=== PATIENT | male | born 1940 | race Caucasian/White ===

== ENCOUNTER 2017-10-08 19:17 | Emergency (ER) | payer MEDICARE ==
[~2017-10-08] VITALS: Ht 175.3 cm; Wt 90.9 kg
[~2017-10-08 19:17] MED LIST: ASPI325T33 PO; LOSA50TA PO; MULT1TAB64 PO; TERA5CAP3 PO
[2017-10-08 19:28] VITALS: BP 167/77; PULSE 62; RESP 14; TEMP 98.3; O2SAT 98
[2017-10-09 00:19] VITALS: BP 172/75; PULSE 57; RESP 16; O2SAT 98
[2017-10-09] MEDS ORDERED: OMEP40CA2 PO (00:19)
[2017-10-09 01:00] VITALS: BP 134/65; PULSE 57; RESP 16; O2SAT 98
[2017-10-09] MEDS ORDERED: oxyCODONE/ACETAMINOPHEN 5 MG/325 MG TAB PO ONE (01:15)
[2017-10-09] MEDS ORDERED: DEXAMETHASONE SOD PHOS 20 MG/5 ML VIAL IM ONE (01:15)
[2017-10-09] MEDS ORDERED: KETOROLAC TROMETHAMINE 60 MG/2 ML (IM) VIAL IM ONE (01:15)
[2017-10-09 01:45] LABS: BILIRUBIN, URINE NEG (NEG); BLOOD, URINE NEG (NEG); GLUCOSE,URINE NEG (NEG); KETONE, URINE NEG (NEG); MUCUS URINE FEW /lpf (OCC); NITRITE,URINE NEG (NEG); PH, URINE 6.5 (5.0-8.5); URINE COLOR YELLOW (YELLW/STRAW); URINE LEUKOCYTE ESTERASE NEG (NEG)
[2017-10-09] MEDS ORDERED: MEDR4PAK PO (02:27)
--- NOTE | 2017-10-09 02:27 | PD ---
HPI Chief Complaint: Back/ Neck Pain or Injury Time Seen by Provider: 01:14 Travel History International Travel<30 days: No Contact w/Intl Traveler<30days: No Traveled to known affect area: No History of Present Illness HPI 76-year-old male presents to the emergency department complaint of back pain with radiation to the left lower extremity. Patient with known chronic back pain currently undergoing physical therapy. Patient has an MRI. Patient has been considered a nonsurgical patient. Patient reports after physical therapy evaluation yesterday around 10 AM started having increased low back pain with radiation to the left lower extremity. No numbness tingling or weakness of the left lower extremity just complaining of increasing pain and bladder bowel dysfunction no saddle anesthesia. Patient took a one-time dose of hydrocodone without symptomatic relief and decided to come to the emergency room. Patient rates pain as 8/10 in intensity. Movement worsens symptoms. No recent fever chills vomiting chest pain shortness of breath or abdominal pain. Patient did have brief episode of nausea secondary to intensity of pain that has now resolved. PFSH Past Medical History Narrative Medical Dyslipidemia chronic back pain hiatal hernia appendectomy; nursing notes reviewed Blood Disorders: No Heart Rhythm Problems: No Cancer: Yes (SKIN CA) Cardiac Catheterization: No Cardiovascular Problems: Yes High Cholesterol: Yes Congestive Heart Failure: No Diabetes: No Diminished Hearing: No Deep Vein Thrombosis: Yes Endocrine: No Gastrointestinal Disorders: Yes Genitourinary: No Hiatal Hernia: Yes Hypertension: Yes Immune Disorder: No Musculoskeletal: Yes Neurologic: Yes Psychiatric: No Reproductive: No Respiratory: No Tetanus Vaccination: < 5 Years Influenza Vaccination: Yes Past Surgical History Abdominal Surgery: Yes (UMBILICAL HERNIA, COLON REP./ APPY) Appendectomy: Yes Coronary Artery Bypass Graft: No Neurologic Surgery: Yes (NERVE BLOCK FOR RLE) Pacemaker: No Tonsillectomy: Yes Other Surgery: Yes Social History Alcohol Use: Yes (OCCASIONALLY) Tobacco Use: No Substance Use: No Allergies-Medications (Allergen,Severity, Reaction): Coded Allergies: No Known Allergies (Verified Adverse Reaction, Unknown, 08/13/17) Reported Meds & Prescriptions Reported Meds & Active Scripts Active Medrol Dosepak (Methylprednisolone) 4 Mg Dspk 4 Mg PO DIRECTED Per Pharmacist direction Reported Omeprazole 40 Mg Cap 40 Mg PO DAILY Centrum Silver Men Tablet (Multivit-Min/FA/Lycopen/Lutein) 300 Mcg-600 Mcg-300 Mcg Tablet 1 Tab PO DAILY Aspirin EC (Aspirin) 325 Mg Tabdr 325 Mg PO DAILY Terazosin (Terazosin HCl) 5 Mg Cap 5 Mg PO HS Losartan (Losartan Potassium) 50 Mg Tab 50 Mg PO DAILY Review of Systems Except as stated in HPI: all other systems reviewed are Neg Physical Exam Narrative GENERAL: Well-developed well-nourished male in no acute distress no respiratory distress SKIN: Warm and dry. HEAD: Normocephalic. EYES: No scleral icterus. No injection or drainage. NECK: Supple, trachea midline. No JVD or lymphadenopathy. CARDIOVASCULAR: Regular rate and rhythm without murmurs, gallops, or rubs. RESPIRATORY: Breath sounds equal bilaterally. No accessory muscle use. GASTROINTESTINAL: Abdomen soft, non-tender, nondistended. MUSCULOSKELETAL: No cyanosis, or edema. BACK: Nontender without obvious deformity except for mild tenderness to direct palpation along the lower lumbar spine over each SI joint left greater than right DTRs 2+ and equal bilateral upper extremities without clonus. Sensory exam intact as tested. Pain is exacerbated by lifting of the left lower extremity. No CVA tenderness. Dorsalis pedis pulse 2+ to palpation. Data Data Last Documented VS Vital Signs Date Time Temp Pulse Resp B/P (MAP) Pulse Ox O2 Delivery O2 Flow Rate FiO2 10/09/17 02:30 58 16 159/75 (103) 100 10/09/17 01:00 Room Air 10/08/17 19:28 98.3 Orders Orders Dexamethasone Inj (Decadron Inj) (10/09/17 01:15) Ketorolac Inj (Toradol Inj) (10/09/17 01:15) Oxycodone-Acetamin 5-325 Mg (Percocet (10/09/17 01:15) Urinalysis - C+S If Indicated (10/09/17 01:14) Ed Discharge Order (10/09/17 02:25) Labs Laboratory Tests Test 10/09/17 01:20 Urine Color YELLOW Urine Turbidity CLEAR Urine pH 6.5 Urine Specific [place] 1.010 Urine Protein NEG mg/dL Urine Glucose (UA) NEG mg/dL Urine Ketones NEG mg/dL Urine Occult Blood NEG Urine Nitrite NEG Urine Bilirubin NEG Urine Urobilinogen LESS THAN 2.0 MG/DL Urine Leukocyte Esterase NEG Urine RBC 1 /hpf Urine WBC 1 /hpf Urine Mucus FEW /lpf Microscopic Urinalysis Comment CULT NOT INDICATED MDM Medical Decision Making Medical Screen Exam Complete: Yes Emergency Medical Condition: Yes Medical Record Reviewed: Yes Differential Diagnosis Sciatica sacroiliitis lumbar disc disease lumbar radiculopathy; no findings for cauda equina syndrome Narrative Course Patient presents with known lumbar disc disease with sciatica presentation administered Toradol 60 mg IM and Decadron 10 mg IM Patient resting comfortably Patient notes marked improvement of symptoms and is stable for outpatient management patient's had no recent injury or fall or change in history and no neurologic deficit on exam: Patient is stable for outpatient management and follow up with his outpatient management physician. Diagnosis Primary Impression: Sciatica Referrals: Primary Care Physician call for appointment Patient Instructions: General Instructions Additional Instructions: Follow-up with your primary care provider Return to the emergency department for any concerns or change in condition Take steroid as prescribed Take pain medication as prescribed as needed Med/Other Pt SpecificInfo: Prescription(s) given Scripts Methylprednisolone Dosepak (Medrol Dosepak) 4 Mg Dspk 4 MG PO DIRECTED, #1 DSPK 0 Refills Per Pharmacist direction Prov: Hyacinth Thibodeaux MD 10/09/17 Disposition: DISCHARGE HOME Condition: Stable Hyacinth Thibodeaux MD Oct 09, 2017 02:27
[2017-10-09 02:30] VITALS: BP 159/75
== END 2017-10-09 02:45 | disposition home or self-care (01) ==
LOC: NEPC 19:17
DX: M51.17 Intervertebral disc disorders with radiculopathy, lumbosacral region (principal); G89.29 Other chronic pain; E78.00 Pure hypercholesterolemia, unspecified; Z86.718 Personal history of other venous thrombosis and embolism; I10 Essential (primary) hypertension
CPT/HCPCS: 81001; 96372; 99283; J1100; J1885

== ENCOUNTER → 2017-11-17 | Outpatient (CLI) | payer MEDICARE ==
[~2017-11-17] MED LIST changes: +HYDR-3366 PO; +MEDR4PAK PO; +OMEP40CA2 PO
[2017-11-17 12:31] LABS: AUTOMATED NEUTROPHIL # 3.5 TH/MM3 (1.8-7.7); BASOPHIL % 0.5 % (0.0-2.0); EOSINOPHIL # 0.1 TH/MM3 (0-0.4); EOSINOPHIL % 1.8 % (0.0-4.0); HEMATOCRIT 38.3 % (39.0-51.0); LYMPH % 25.2 % (9.0-44.0); LYMPHOCYTE # 1.4 TH/MM3 (1.0-4.8); MEAN CELL VOLUME 92.2 FL (80.0-100.0); MEAN CORPUSCULAR HEMOGLOBIN 31.4 PG (27.0-34.0); MEAN PLATELET VOLUME 8.1 FL (7.0-11.0); MONOCYTE # 0.4 TH/MM3 (0-0.9); NEUT % 64.5 % (16.0-70.0); PLATELET COUNT 209 TH/MM3 (150-450); RED BLOOD COUNT 4.16 MIL/MM3 (4.50-5.90); RED CELL DISTRIBUTION WIDTH 13.1 % (11.6-17.2); WHITE BLOOD COUNT 5.5 TH/MM3 (4.0-11.0)
[2017-11-17 12:38] LABS: PROTHROMBIN TIME - PATIENT 10.2 SEC (9.8-11.6)
[2017-11-17 12:55] LABS: ALBUMIN 3.7 GM/DL (3.4-5.0); AST (GOT) 24 U/L (15-37); BICARBONATE 28.2 MEQ/L (21.0-32.0); BLOOD UREA NITROGEN 15 MG/DL (7-18); CALCIUM 9.1 MG/DL (8.5-10.1); CHLORIDE 105 MEQ/L (98-107); CREATININE 0.99 MG/DL (0.60-1.30); GLOMERULAR FILTRATION RATE 73 ML/MIN (>89); GLUCOSE,FASTING 107 MG/DL (74-99); SODIUM (NA) 141 MEQ/L (136-145)
[2017-11-17 12:56] LABS: ALT (GPT) 31 U/L (12-78)
[2017-11-17 12:58] LABS: ALKALINE PHOSPHATASE 61 U/L (45-117); TOTAL BILIRUBIN ADULT 0.4 MG/DL (0.2-1.0); TOTAL PROTEIN 7.1 GM/DL (6.4-8.2)
--- NOTE | 2017-11-18 16:09 | EKG ---
Date Performed: 11/17/2017 Time Performed: 12:30:51 PTAGE: 77 years EKG: SINUS BRADYCARDIA LEFT AXIS DEVIATION POSSIBLE LATERAL MYOCARDIAL INFARCTION ABNORMAL ECG PREVIOUS TRACING : 02/28/2012 21.44 No significant change from previous tracing noted. DOCTOR: Jason Fisher Interpretating Date/Time 11/18/2017 16:08:20
== END ==
LOC: CPRE 11:39
PROVIDERS: ATTEND Neurological Surgery
DX: Z01.812 Encounter for preprocedural laboratory examination (principal); Z01.810 Encounter for preprocedural cardiovascular examination; M48.062 Spinal stenosis, lumbar region with neurogenic claudication; M54.32 Sciatica, left side; M47.26 Other spondylosis with radiculopathy, lumbar region; R94.31 Abnormal electrocardiogram [ECG] [EKG]
CPT/HCPCS: 36415; 80053; 85025; 85610; 85730; 87640; 87641; 93005

== ENCOUNTER → 2017-11-19 | Outpatient (CLI) | payer MEDICARE ==
[2017-11-19 14:11] LABS: BILIRUBIN, URINE NEG (NEG); BLOOD, URINE NEG (NEG); GLUCOSE,URINE NEG (NEG); KETONE, URINE NEG (NEG); MUCUS URINE FEW /lpf (OCC); NITRITE,URINE NEG (NEG); PH, URINE 5.5 (5.0-8.5); URINE COLOR LIGHT-YELLOW (YELLW/STRAW); URINE LEUKOCYTE ESTERASE NEG (NEG)
== END ==
LOC: CLAB 13:10
PROVIDERS: ATTEND Neurological Surgery
DX: Z01.89 Encounter for other specified special examinations (principal)
CPT/HCPCS: 81001

== ENCOUNTER → 2017-11-20 | Day surgery (SDC) | payer MEDICARE ==
[~2017-11-20] VITALS: Ht 177.8 cm; Wt 98.0 kg
[~2017-11-20] MED LIST changes: +ACETAMINOPHEN 1000 MG/100 ML 100 ML IV ONE; +ACETAMINOPHEN/HYDROcodone 325 MG/10 MG TAB PO PRN; +BUPIVACAINE/EPINEPHRINE 0.5% PF 10 ML VIAL ONE; +BUPIVACAINE/EPINEPHRINE 0.5% PF 30 ML VIAL ONE; +CHLORHEXIDINE GLUCONATE 2 % 1 PACK (2 CLOTHS) TOPICAL PRN; +DEXAMETHASONE SOD PHOS 4 MG/ML VIAL IV ONE; +DO NOT ADM ANY ANTICOAGULANT DRUGS PRN; +GELFOAM SIZE 100 ONE; +GLYCOPYRROLATE 1 MG/5 ML SYRINGE IV PUSH ONE; +LABETALOL HCL 100 MG/20 ML VIAL IV ONE; +LACTATED RINGER'S 1000 ML INJ 1,000 ML IV ONE; +LACTATED RINGER'S 1000 ML IV PRN; +LIDOCAINE HCL 1% PF 5 ML SYRINGE OTHER ONE; -MEDR4PAK PO; +MEPERIDINE HCL 50 MG/ML VIAL ONE; +METOPROLOL TARTRATE 25 MG TAB PO PRN; +MIDAZOLAM HCL 2 MG/2 ML VIAL ONE; +NEOSTIGMINE 5 MG/5 ML SYRINGE IV PUSH ONE; +NS + KCL 20 MEQ INJ 1,000 ML IV SCH; +ONDANSETRON HCL 4 MG/2 ML VIAL IV ONE; +PHENYLEPHRINE HCL 10 MG/ML VIAL IV ONE; +POVIDONE IODINE 5% (ANTISEPSIS KIT) 4 APPLICATIONS EACH NARE PRN; +PROPOFOL 200 MG/20 ML AMP IV ONE; +ROCURONIUM INJ 50 MG/5 ML SYRINGE IV PUSH ONE; +SODIUM CHLORID 0.9% 500 ML IV PRN; +THROMBIN (TOPICAL) 5,000 UNIT VIAL ONE; +VANCOMYCIN 1 GM/200 ML INJ 200 ML IV SCH; +VANCOMYCIN HCL 1000 MG VIAL ONE; +ePHEDrine/NS 25 MG/5 ML SYRINGE IV ONE; +fentaNYL CITRATE 250 MCG/5 ML AMP ONE; +methylPREDNISolone ACETATE 40 MG/ML VIAL ONE
--- NOTE | 2017-11-20 13:35 | PD.OP ---
cc: Mildred Santana Jr., MD Operative Report Date of Surgery: Nov 20, 2017 Preoperative Diagnosis: Lumbar L4-5 spinal stenosis from facet and ligamentum flavum hypertrophy with associated herniated disc; intractable back pain with radiculopathy Postoperative Diagnosis: Same Procedure: Lumbar L4-5 decompressive laminectomy with microdiscectomy; microsurgical technique Anesthesia: Gen. endotracheal by Nila euceda Surgeon: Avery Pelaez M.D. Manager Community Outreach(s): Debra Kong Operation and Findings: Following administration of general endotracheal anesthesia, patient received vancomycin 1 g intravenously. Sequential compression devices were placed for DVT prophylaxis. He was then turned in prone position on Jarrod frame and the Javier table and all pressure points adequately padded. The lumbar region was then shaved and prepped with a Betadine and ChloraPrep. Sterile draping undertaken with Ioban. Midline incision overlying the L4-5 level was then made after infiltrating the skin with 0.5% Marcaine with epinephrine solution. The skin incision was made extending down through the fascia and then using the subperiosteal plane on the left side the muscular attachments to the spinous process and lamina were detached. Intraoperative fluoroscopy was used for level confirmation and further dissection undertaken using microtechnique with microscope magnification. The inferior portion of the L4 and superior portion of the L5 lamina were then drilled out and the underlying ligamentum flavum also removed. There was facet arthropathy noted and the medial portion of facet was also resected and the lateral recess decompressed. Epidural venous stasis which he with the bipolar cautery along with Gelfoam and thrombin and bone wax used at the laminotomy edges for hemostasis. The thecal sac was then gently retracted with a nerve root retractor and an extruded disc fragment was identified which was superiorly migrated. Fragments were removed with pituitary forceps and the nerve root impingement along with thecal sac compression decompressed. The area was then copiously irrigated with vancomycin solution. I injected 40 mg of Depo-Medrol in the epidural space. The retractors removed and the muscle fascia proximal using 2-0 Vicryl interrupted stitches. 3-0 Vicryl subcuticular stitches were also placed in an interrupted fashion and planned skin closure was with Mastisol and Steri- Strips. A sterile dressing was then applied and the patient then turned in the supine position and extubated and taken to recovery room in stable condition. There were no intraoperative complications and all sponge and needle count was correct at the end of the procedure. Estimated blood loss about 25 ml. Avery Pelaez MD Nov 20, 2017 13:35
--- NOTE | 2017-11-20 14:05 | RADRPT ---
EXAM DATE/TIME: 11/20/2017 11:38 [facility] COMPARISON: No previous studies available for comparison. INDICATIONS : L4-L5 lumbar laminectomy. Level localization. MEDICAL HISTORY : None. SURGICAL HISTORY : None. ENCOUNTER: Initial ACUITY: 1 day PAIN SCORE: Non-responsive. LOCATION: Lumbar spine. FINDINGS: Surgical instrument is noted posteriorly at the L4-5 level CONCLUSION: Surgical instrument noted posteriorly at the L4-5 level. Nasim Davila MD on November 20, 2017 at 14:02 Board Certified Radiologist. This report was verified electronically.
[2017-11-20 15:14] VITALS: BP 117/65; PULSE 53; RESP 20; TEMP 97.5; O2SAT 94
== END | disposition home or self-care (01) ==
LOC: HSDC 07:01
PROVIDERS: ATTEND Neurological Surgery
DX: M51.16 Intervertebral disc disorders with radiculopathy, lumbar region (principal); M48.062 Spinal stenosis, lumbar region with neurogenic claudication; I10 Essential (primary) hypertension
CPT/HCPCS: 00630; 63030; 72020; 76000; J0131; J1030; J1100; J2175; J2250; J2370; J2405; J2710; J3010; J3370; J7120

== ENCOUNTER → 2018-02-18 | Outpatient (CLI) | payer MEDICARE ==
[~2018-02-18] MED LIST changes: -ACETAMINOPHEN 1000 MG/100 ML 100 ML IV ONE; -ACETAMINOPHEN/HYDROcodone 325 MG/10 MG TAB PO PRN; -BUPIVACAINE/EPINEPHRINE 0.5% PF 10 ML VIAL ONE; -BUPIVACAINE/EPINEPHRINE 0.5% PF 30 ML VIAL ONE; -CHLORHEXIDINE GLUCONATE 2 % 1 PACK (2 CLOTHS) TOPICAL PRN; -DEXAMETHASONE SOD PHOS 4 MG/ML VIAL IV ONE; -DO NOT ADM ANY ANTICOAGULANT DRUGS PRN; -GELFOAM SIZE 100 ONE; -GLYCOPYRROLATE 1 MG/5 ML SYRINGE IV PUSH ONE; -LABETALOL HCL 100 MG/20 ML VIAL IV ONE; -LACTATED RINGER'S 1000 ML INJ 1,000 ML IV ONE; -LACTATED RINGER'S 1000 ML IV PRN; -LIDOCAINE HCL 1% PF 5 ML SYRINGE OTHER ONE; -MEPERIDINE HCL 50 MG/ML VIAL ONE; -METOPROLOL TARTRATE 25 MG TAB PO PRN; -MIDAZOLAM HCL 2 MG/2 ML VIAL ONE; -NEOSTIGMINE 5 MG/5 ML SYRINGE IV PUSH ONE; -NS + KCL 20 MEQ INJ 1,000 ML IV SCH; -ONDANSETRON HCL 4 MG/2 ML VIAL IV ONE; -PHENYLEPHRINE HCL 10 MG/ML VIAL IV ONE; -POVIDONE IODINE 5% (ANTISEPSIS KIT) 4 APPLICATIONS EACH NARE PRN; -PROPOFOL 200 MG/20 ML AMP IV ONE; -ROCURONIUM INJ 50 MG/5 ML SYRINGE IV PUSH ONE; -SODIUM CHLORID 0.9% 500 ML IV PRN; -THROMBIN (TOPICAL) 5,000 UNIT VIAL ONE; -VANCOMYCIN 1 GM/200 ML INJ 200 ML IV SCH; -VANCOMYCIN HCL 1000 MG VIAL ONE; +ZANT150T2 PO; -ePHEDrine/NS 25 MG/5 ML SYRINGE IV ONE; -fentaNYL CITRATE 250 MCG/5 ML AMP ONE; -methylPREDNISolone ACETATE 40 MG/ML VIAL ONE
--- NOTE | 2018-02-18 11:42 | RADRPT ---
EXAM DATE: 02/18/2018 10:53 AM EDT AGE/SEX: 77 years / Male INDICATIONS: Evaluate for pneumonia, pneumothorax, or any communicable disease. Pre op lower back tineo rgery. CLINICAL DATA: This is the patient's initial encounter. Patient reports that signs and symptoms have been present for 1 day and indicates a pain score of 0/10. MEDICAL/SURGICAL HISTORY: None. None. COMPARISON: No prior exams available for comparison. FINDINGS: PA and lateral views of the chest demonstrate the lungs to be symmetrically aerated without evidence of mass, infiltrate or effusion. The cardiomediastinal contours are unremarkable. Osseous structures are intact. CONCLUSION: No acute cardiopulmonary process. Electronically signed by: Joselito Oconnell MD 02/18/2018 11:41 AM EDT
[2018-02-18 11:43] LABS: AUTOMATED NEUTROPHIL # 3.6 TH/MM3 (1.8-7.7); BASOPHIL % 0.6 % (0.0-2.0); EOSINOPHIL # 0.2 TH/MM3 (0-0.4); EOSINOPHIL % 3.4 % (0.0-4.0); HEMATOCRIT 38.9 % (39.0-51.0); HEMOGLOBIN 13.3 GM/DL (13.0-17.0); LYMPH % 21.3 % (9.0-44.0); LYMPHOCYTE # 1.1 TH/MM3 (1.0-4.8); MEAN CORPUSCULAR HEMOGLOBIN 31.6 PG (27.0-34.0); MEAN CORPUSCULAR HGB CONC 34.3 % (32.0-36.0); MEAN PLATELET VOLUME 9.1 FL (7.0-11.0); MONO % 7.3 % (0.0-8.0); MONOCYTE # 0.4 TH/MM3 (0-0.9); NEUT % 67.4 % (16.0-70.0); PLATELET COUNT 200 TH/MM3 (150-450); RED BLOOD COUNT 4.23 MIL/MM3 (4.50-5.90); RED CELL DISTRIBUTION WIDTH 13.1 % (11.6-17.2); WHITE BLOOD COUNT 5.3 TH/MM3 (4.0-11.0)
[2018-02-18 12:08] LABS: BILIRUBIN, URINE NEG (NEG); BLOOD, URINE NEG (NEG); GLUCOSE,URINE NEG (NEG); HYALINE CAST, URINE 1 /lpf (RARE); KETONE, URINE TRACE mg/dL (NEG); NITRITE,URINE NEG (NEG); URINE COLOR YELLOW (YELLW/STRAW); URINE LEUKOCYTE ESTERASE NEG (NEG)
[2018-02-18 12:20] LABS: ALBUMIN 3.7 GM/DL (3.4-5.0); AST (GOT) 27 U/L (15-37); BICARBONATE 22.2 MEQ/L (21.0-32.0); BLOOD UREA NITROGEN 19 MG/DL (7-18); CHLORIDE 109 MEQ/L (98-107); CREATININE 1.02 MG/DL (0.60-1.30); GLOMERULAR FILTRATION RATE 71 ML/MIN (>89); GLUCOSE,FASTING 109 MG/DL (74-99); SODIUM (NA) 143 MEQ/L (136-145)
[2018-02-18 12:21] LABS: ALT (GPT) 28 U/L (12-78)
[2018-02-18 12:24] LABS: ALKALINE PHOSPHATASE 63 U/L (45-117); TOTAL BILIRUBIN ADULT 0.3 MG/DL (0.2-1.0); TOTAL PROTEIN 7.1 GM/DL (6.4-8.2)
== END ==
LOC: CPRE 09:39
PROVIDERS: ATTEND Neurological Surgery
DX: Z01.812 Encounter for preprocedural laboratory examination (principal); Z01.818 Encounter for other preprocedural examination; M51.16 Intervertebral disc disorders with radiculopathy, lumbar region; M99.73 Connective tissue and disc stenosis of intervertebral foramina of lumbar region; M21.372 Foot drop, left foot; Z79.01 Long term (current) use of anticoagulants
CPT/HCPCS: 36415; 71046; 80053; 81001; 85025; 85610; 85730; 87640; 87641

== ENCOUNTER 2018-02-24 06:00 | Inpatient (IN) | payer MEDICARE ==
--- NOTE | 2018-02-23 16:30 | MH ---
cc: Avery Pelaez MD,Mildred Jenkins,Yrn Velázquez MD DATE OF ADMISSION: 02/24/2018 DATE OF ADMISSION: 02/24/2018 ADMITTING DIAGNOSES: 1. Low back pain. 2. Scar tissue and disk stenosis of intervertebral foramen. HISTORY OF PRESENT ILLNESS: This is a 77-year-old male who presented to us for an evaluation of stiffness in his left ankle as well as cramps in his left calf. He gets edema in the left foot and ankle area. With walking, he sometimes staggers. He also has had deep pain in the left leg, likely a sciatic type of pain. He has tried gabapentin for his symptoms in the past, which did not help. He has previously undergone a L4/L5 decompressive laminectomy with microdiscectomy on 11/20/2017. He states that after surgery he had persistent left valentin area discomfort with numbness also in the left anterior valentin and lateral calf and foot. The patient is adamant that we consider surgical intervention, stating that his discomfort is not something he can live with. PAST MEDICAL HISTORY: Significant for skin cancer, deep vein thrombosis, hiatal hernia, hyperlipidemia, hypertension, spinal stenosis, status post a lumbar L4/L5 decompressive laminectomy with microdiscectomy on 11/20/2017, gastroesophageal reflux disease, seasonal allergies. CURRENT MEDICATIONS: 1. He takes aspirin 325 mg by mouth daily. This was placed on hold prior to surgical intervention. 2. Gabapentin 300 mg by mouth at bedtime. 3. [place] 5/325 three times a day as needed for pain. 4. Losartan 50 mg by mouth daily. 5. Multivitamin daily. 6. Omeprazole 40 mg by mouth daily. 7. Saw palmetto by mouth daily. 8. Terazosin 5 mg by mouth daily. 9. Zantac 150 mg at bedtime. ALLERGIES: CHIKA CAUSES A RASH. FAMILY HISTORY: Mother is , had malignant tumor of the lung. Father is . Brother has hypertension. SOCIAL HISTORY: The patient does not smoke and has not smoked in the past. PAST SURGICAL HISTORY: He has had abdominal surgery with colon repair, appendectomy, tonsillectomy and L4/L5 decompressive lumbar laminectomy with microdiscectomy on 11/20/2017. REVIEW OF SYSTEMS: CONSTITUTIONAL: He denies any fever, chills. EARS, NOSE AND THROAT. No pharyngitis, exudate or bloody drainage from his nose. CARDIOVASCULAR: Denies any chest pain or palpitations. RESPIRATORY: No cough or shortness of breath. GASTROINTESTINAL: No nausea, vomiting, abdominal pain. GENITOURINARY: No dysuria or hematuria. MUSCULOSKELETAL: Positive for low back pain and left leg pain with numbness. NEUROLOGIC: Denies any difficulty with speech or memory. INTEGUMENTARY: No rashes or pruritus. PSYCHIATRIC: No anxiety or depression symptoms. ENDOCRINE: No polyuria or polydipsia. HEMATOLOGIC: No bruising or bleeding tendencies. PHYSICAL EXAMINATION: HEENT: Head is normocephalic, atraumatic. NECK: Supple. No carotid bruits heard on auscultation. LUNGS: Clear to auscultation bilaterally. HEART: Regular rate and rhythm. Normal S1, S2. ABDOMEN: Soft, nontender, positive bowel sounds. SKIN: No cyanosis or erythema. MUSCULOSKELETAL: He has 3+/5 straight in the left EHL and 2/5 left dorsiflexion strength. Otherwise, he has 5/5 strength in the lower extremities. He ambulates without any assistive device. NEUROLOGIC: He is awake, alert, and oriented. Cranial nerves 2-12 are grossly intact. Speech is fluent. Comprehension is good. Sensation is decreased in the left lateral calf and top of the left foot, otherwise is intact in the lower extremities to light touch. IMAGING STUDIES REVIEWED: MRI of the lumbar spine from 01/02/2018 was reviewed, which reveals spinal stenosis along with a herniated disk has resolved, although he does have facet arthropathy and some disc degeneration at the L4-L5 level along with likely epidural scar tissue with enhancement in the lateral recess and foramen. An EMG/nerve conduction study also reveals a left L5 radiculopathy. IMPRESSION: A 77-year-old male who is now almost 3 months status post L4/L5 microdiscectomy for herniated disk with associated degenerative spinal stenosis. He had noticed some extensor hallucis longus dorsiflexion weakness prior to surgery and relates that this has not improved. He notices his foot flopping especially if he walks longer distances. He also complains of back pain and occasionally right leg pain. He also complains of numbness in the plantar aspect of the left foot along with swelling in the ankle and foot. Repeat ultrasound of the lower extremities is negative for any deep venous thrombosis although he does have a history of deep venous thrombosis in the past. Followup MRI of the lumbar spine from 01/02/2018 reveals his spinal stenosis along with herniated disk has resolved, although he does have facet arthropathy and some disc degeneration at the L4-L5 level along with likely epidural scar tissue with enhancement in the lateral recess and foramen. PLAN: He is adamant that we consider surgical intervention with a re-do L4/L5 foraminotomy with epidural lysis of scar tissue versus a transforaminal decompression with complete facetectomy, foraminotomy and associated interbody fusion. The procedure, as well as the risks and benefits were discussed of both procedures and he was informed that he may not improve after surgery, it could even be worse and no guarantees were given to him as to the results. He has a significant left foot drop prior to the surgery and, despite further surgical intervention, this may not improve and this was discussed with the patient and his . Dr. Pelaez has also discussed with the patient and the use of an AFO brace to decrease his fall risk. The patient wanted to proceed with interbody fusion and pedicle screw fixation. Again the procedure as well as the risks, benefits, alternatives, and recovery time were explained in great detail with the patient. We have discussed the risks involved with surgery to include but not limited to bleeding, infection, muscle weakness, voice hoarseness, difficulty swallowing, heart attack, stroke, blood clots, nonfusion, scar tissue formation, among others. We have discussed the restrictions after surgery to help with the healing process. The patient states that he understands the procedure as well as the risks involved and he is requesting to proceed and he was therefore scheduled accordingly. MD Monico Enriquez, JAYANT LEMONS/DINESH , 03:44 PM , 04:29 PM
[~2018-02-24] VITALS: Ht 177.8 cm; Wt 101.4 kg
[2018-02-24] MEDS ORDERED: CHLORHEXIDINE GLUCONATE 2 % 1 PACK (2 CLOTHS) TOPICAL PRN ×2 (06:15→06:30)
[2018-02-24] MEDS ORDERED: VANCOMYCIN 1 GM/200 ML PREMIX ON-CALL IV SCH (06:15)
[2018-02-24] MEDS ORDERED: LACTATED RINGER'S 1000 ML IV PRN (06:15)
[2018-02-24] MEDS ORDERED: METOPROLOL TARTRATE 25 MG TAB PO PRN (06:15)
[2018-02-24] MEDS ORDERED: POVIDONE IODINE 5% (ANTISEPSIS KIT) 4 APPLICATIONS EACH NARE PRN (06:15)
[2018-02-24] MEDS ORDERED: SODIUM CHLORID 0.9% 500 ML IV PRN (06:15)
[2018-02-24] MEDS ORDERED: VANCOMYCIN HCL 1000 MG VIAL ONE (07:22)
[2018-02-24] MEDS ORDERED: VANCOMYCIN 500 MG VIAL ONE ×2 (07:22→07:53)
[2018-02-24] MEDS ORDERED: THROMBIN (TOPICAL) 5,000 UNIT VIAL ONE ×2 (07:22→12:10)
[2018-02-24] MEDS ORDERED: BUPIVACAINE/EPINEPHRINE 0.5% PF 30 ML VIAL ONE (07:22)
[2018-02-24] MEDS ORDERED: GELFOAM SIZE 100 ONE (07:50)
[2018-02-24] MEDS ORDERED: ACETAMINOPHEN 1000 MG/100 ML 100 ML IV ONE (08:29)
[2018-02-24] MEDS ORDERED: FAMOTIDINE 20 MG/2 ML VIAL ONE (08:29)
[2018-02-24] MEDS ORDERED: PHENYLEPH/NS 1000 MCG/10 ML SYR IV ONE (12:00)
[2018-02-24] MEDS ORDERED: LIDOCAINE HCL 1% PF 5 ML SYRINGE OTHER ONE (12:00)
[2018-02-24] MEDS ORDERED: PHENYLEPHRINE HCL 10 MG/ML VIAL IV ONE (12:00)
[2018-02-24] MEDS ORDERED: NEOSTIGMINE 5 MG/5 ML SYRINGE IV PUSH ONE (12:00)
[2018-02-24] MEDS ORDERED: PROPOFOL 200 MG/20 ML AMP IV ONE (12:00)
[2018-02-24] MEDS ORDERED: ePHEDrine/NS 25 MG/5 ML SYRINGE IV ONE (12:00)
[2018-02-24] MEDS ORDERED: ROCURONIUM INJ 50 MG/5 ML SYRINGE IV PUSH ONE (12:00)
[2018-02-24] MEDS ORDERED: ONDANSETRON HCL 4 MG/2 ML VIAL IV ONE (12:00)
[2018-02-24] MEDS ORDERED: GLYCOPYRROLATE 1 MG/5 ML SYRINGE IV PUSH ONE (12:00)
[2018-02-24] MEDS ORDERED: DEXAMETHASONE SOD PHOS 4 MG/ML VIAL IV ONE (12:00)
[2018-02-24] MEDS ORDERED: BISACODYL 10 MG SUPP RECTAL PRN (13:00)
[2018-02-24] MEDS ORDERED: ONDANSETRON HCL 4 MG/2 ML VIAL IV PUSH PRN (13:00)
[2018-02-24] MEDS ORDERED: cloNIDine HCL 0.1 MG TAB PO PRN (13:00)
[2018-02-24] MEDS ORDERED: SENNOSIDES 8.6 MG TAB PO PRN (13:00)
[2018-02-24] MEDS ORDERED: PROMETHAZINE INJ 25 MG/ML VIAL IM PRN (13:00)
[2018-02-24] MEDS ORDERED: MENTHOL LOZENGE BUCCAL PRN (13:00)
[2018-02-24] MEDS ORDERED: LACTULOSE SYRUP 20 GM/30 ML CUP PO PRN (13:00)
[2018-02-24] MEDS ORDERED: MAGNESIUM SULFATE INJ 2 GM in SODIUM CHLORIDE 0.9% INJ 100 ML IV PRN (13:00)
[2018-02-24] MEDS ORDERED: RESP: ALBUTEROL 2.5 MG/3 ML NEB (PRN) NEB (13:00)
[2018-02-24] MEDS ORDERED: SODIUM CHLORIDE 0.9% FLUSH 10 ML FLUSH IV FLUSH PRN (13:00)
[2018-02-24] MEDS ORDERED: ACETAMINOPHEN 325 MG TAB PO PRN (13:00)
[2018-02-24] MEDS ORDERED: POTASSIUM CHLOR 20 MEQ PREMIX 100 ML IV PRN (13:00)
[2018-02-24] MEDS ORDERED: MAGNESIUM HYDROXIDE SUSP 30 ML CUP PO PRN (13:00)
[2018-02-24] MEDS ORDERED: ALUMINUM/MAGNESIUM/SIMETH 30 ML CUP PO PRN (13:00)
[2018-02-24] MEDS ORDERED: CALCIUM GLUCONATE INJ 1 GM in SODIUM CHLORIDE 0.9% INJ 100 ML IV PRN (13:00)
--- NOTE | 2018-02-24 13:01 | PD.OP ---
cc: Mildred Santana Jr., MD Operative Report Date of Surgery: Feb 24, 2018 Preoperative Diagnosis: Lumbar L4-5 degenerative disc disease with grade 1 spondylolisthesis and recurrent disc herniation with facet hypertrophy and associated spinal/ foraminal stenosis; post laminectomy syndrome Postoperative Diagnosis: Same Procedure: Left L4-5 transforaminal interbody fusion; L4-5 redo laminectomy with facetectomy/foraminotomy/microdiscectomy with epidural lysis; L4-5 pedicle screw fixation; L4-5 interbody cage placement; microsurgical technique Anesthesia: General endotracheal by Nila euceda Surgeon: Avery Pelaez MD Band Director(s): Debra Kong Operation and Findings: Following initiation of general endotracheal anesthesia, the patient had a Ross catheter placed along with sequential compression devices. A gram of vancomycin was administered intravenously and he was turned in a prone position on a Jarrod frame, on a Javier table, and all pressure points adequately padded. The lumbosacral region was then prepped with Chloraprep and sterilely draped with Ioban along the usual sterile draping. The previous L4-5 midline skin incision was then made extending after infiltrating the skin with 0.5% Marcaine with epinephrine solution extending down through the fascia. The muscle fibers were split using avascular fatty plane and detached from the underlying facets, transverse process and lateral portion of lamina on the left side and a self-retaining retractor used for exposure. Intraoperative fluoroscopy was also used for level of confirmation along with microscope magnification for further dissection. There was significant facet and ligamentum flavum hypertrophy noted at the L4-5 levels. Left L4-5 facet was resected with a drill bit along with the lamina and there was severe foraminal and lateral recess stenosis from hypertrophied ligamentum flavum and facet which was decompressed and there is a laminotomy defect noted along with the lateral disc herniations compressing on the exiting nerve root in particular. The thecal sac and the exiting nerve root was completely decompressed with lysis of the epidural scar tissue. A submillimeter area of CSF leak on the ventral lateral aspect was noted and this was closed with compressed Gelfoam and DuraSeal with no CSF leak noted after this closure with Valsalva maneuvers. Epidural hemostasis was achieved with bipolar cautery and Gelfoam with thrombin. Subsequently entered into the disc space at the L4-5 level with a # 15 blade and andre were used for discectomy. I then placed PEEK cage packed with local autograft bone and more local autograft bone was packed adjacent to the cage in interspace for added interbody fusion. With placement of the cage, I was able to distract the interspace and opened up the foramen further bilaterally. Subsequently in order to facilitate the fusion and provide stabilization, pedicle screw fixation was undertaken using [place] spine screws on entry point at the left L4-5 levels at the junction of the transverse process and facet. Subsequently using AP and lateral fluoroscopy tap and screw placement. The screws were then connected with a kemal and locked in place with caps. The construct appeared very secure at this point. The area was then copiously irrigated with Vancomycin solution and powder. The retractors were removed and the bipolar cautery used for hemostasis. The muscle fascia was then approximated using 2-0 Vicryl interrupted stitches and then 3-0 Vicryl subcuticular stitches also placed in interrupted fashion. The final skin closure was completed with Mastisol and Steri-Strips. A sterile dressing was then applied. The patient then turned in supine position, extubated and taken to recovery room. There were no intraoperative complications. All sponge and needle counts were correct at the end of procedure. Estimated blood loss about 100 ml. Avery Pelaez MD Feb 24, 2018 13:01
[2018-02-24] MEDS ORDERED: DO NOT ADM ANY ANTICOAGULANT DRUGS PRN (13:10)
[2018-02-24] MEDS ORDERED: *morphine SULFATE 4 MG/ML PERIprocedure ONLY ONE (13:23)
[2018-02-24] MEDS ORDERED: *MEPERIDINE 25 MG INJ VIAL PERIprocedural Use ONLY ONE (13:23)
[2018-02-24] MEDS ORDERED: MIDAZOLAM HCL 2 MG/2 ML VIAL ONE (13:26)
[2018-02-24] MEDS: NS + KCL 20 MEQ INJ 1,000 ML IV SCH (13:37)
--- NOTE | 2018-02-24 13:42 | RADRPT ---
EXAM DATE: 02/24/2018 1:05 PM EDT AGE/SEX: 77 years / Male INDICATIONS: Post-op L4-L5 posterior lumbar fusion. CLINICAL DATA: This is the patient's initial encounter. Patient reports that signs and symptoms have been present for 1 day and indicates a pain score of Nonresponsive. MEDICAL/SURGICAL HISTORY: None. Discectomy, lumbar. COMPARISON: No prior exams available for comparison. FINDINGS: 2 spot images obtained in the operating room during a procedure demonstrates a left-sided pedicular s crews at L4 and L5. Material is also present within the intervening disc space. CONCLUSION: Images document posterior fusion hardware at L4 and L5. Electronically signed by: Joselito Flores MD 02/24/2018 1:40 PM EDT
[2018-02-24 14:09] LABS: AUTOMATED NEUTROPHIL # 7.2 TH/MM3 (1.8-7.7); BASOPHIL % 0.2 % (0.0-2.0); EOSINOPHIL % 0.4 % (0.0-4.0); HEMATOCRIT 33.2 % (39.0-51.0); HEMOGLOBIN 11.5 GM/DL (13.0-17.0); LYMPHOCYTE # 0.6 TH/MM3 (1.0-4.8); MEAN CELL VOLUME 92.5 FL (80.0-100.0); MEAN CORPUSCULAR HGB CONC 34.6 % (32.0-36.0); MEAN PLATELET VOLUME 8.5 FL (7.0-11.0); MONOCYTE # 0.2 TH/MM3 (0-0.9); NEUT % 89.4 % (16.0-70.0); PLATELET COUNT 157 TH/MM3 (150-450); RED BLOOD COUNT 3.59 MIL/MM3 (4.50-5.90); RED CELL DISTRIBUTION WIDTH 13.5 % (11.6-17.2)
[2018-02-24 14:28] LABS: BICARBONATE 25.7 MEQ/L (21.0-32.0); CALCIUM 8.1 MG/DL (8.5-10.1); CREATININE 1.29 MG/DL (0.60-1.30)
[2018-02-24 16:00] VITALS: BP 131/65; PULSE 69; RESP 18; TEMP 97.9; O2SAT 99
[2018-02-24] MEDS: ACETAMINOPHEN/HYDROcodone 325 MG/10 MG TAB PO PRN ×2 (16:27→20:29)
[2018-02-24 20:25] VITALS: BP 128/67; PULSE 67; RESP 20; TEMP 97.4; O2SAT 97
[2018-02-24] MEDS: TERAZOSIN HCL 5 MG CAP PO SCH (20:27)
[2018-02-24] MEDS: FAMOTIDINE 20 MG TAB PO SCH (20:27)
[2018-02-24] MEDS: DOCUSATE SODIUM 50 MG/SENNA 8.6 MG TAB PO SCH (20:27)
[2018-02-24] MEDS: SODIUM CHLORIDE 0.9% FLUSH 10 ML FLUSH IV FLUSH SCH (20:41)
[2018-02-24] MEDS ORDERED: NON-FORMULARY DRUG (Ranitidine (Zantac) 150 MG) PO SCH (21:00)
[2018-02-24] MEDS: ZOLPIDEM TARTRATE 5 MG TAB PO PRN (22:21)
[2018-02-25] MEDS: ACETAMINOPHEN/HYDROcodone 325 MG/10 MG TAB PO PRN ×5 (00:54→20:54)
[2018-02-25] MEDS: NS + KCL 20 MEQ INJ 1,000 ML IV SCH ×4 (00:56→20:56)
[2018-02-25 01:16] VITALS: BP 137/63; PULSE 71; RESP 18; TEMP 97.2; O2SAT 98
[2018-02-25 05:03] VITALS: BP 148/70; PULSE 72; RESP 20; TEMP 97.4
[2018-02-25] MEDS: SODIUM CHLOR 0.9% 1000 ML INJ 1,000 ML IV SCH (06:15)
[2018-02-25] MEDS: PANTOPRAZOLE SOD 40 MG DELAYED RELEASE TAB PO SCH (07:50)
[2018-02-25] MEDS: DOCUSATE SODIUM 50 MG/SENNA 8.6 MG TAB PO SCH ×2 (07:50→20:55)
[2018-02-25] MEDS: ASPIRIN EC 325 MG TABEC PO SCH (07:50)
[2018-02-25] MEDS: LOSARTAN 50 MG TAB PO SCH (07:50)
[2018-02-25] MEDS: CYCLOBENZAPRINE HCL 10 MG TAB PO PRN (07:50)
[2018-02-25] MEDS: MULTIVITAMIN TAB PO SCH (07:50)
[2018-02-25] MEDS: MORPHINE SULFATE 4 MG/ML INJ IV PUSH PRN ×2 (07:51→11:10)
[2018-02-25] MEDS: SODIUM CHLORIDE 0.9% FLUSH 10 ML FLUSH IV FLUSH SCH ×2 (07:51→20:53)
[2018-02-25 08:00] VITALS: BP 163/76; PULSE 75; RESP 16; TEMP 98.2; O2SAT 96
[2018-02-25] MEDS ORDERED: [UNRECOGNIZED DRUG - OTHER] PO SCH (09:00)
[2018-02-25] MEDS ORDERED: NON-FORMULARY DRUG (Omeprazole 40 MG) PO SCH (09:00)
[2018-02-25] MEDS ORDERED: LYCOPEN PO SCH (09:00)
[2018-02-25] MEDS ORDERED: MULTIVIT MIN PO SCH (09:00)
[2018-02-25] MEDS ORDERED: LUTEIN PO SCH (09:00)
[2018-02-25 12:00] VITALS: BP 144/67; PULSE 76; RESP 16; TEMP 97.4; O2SAT 96
--- NOTE | 2018-02-25 13:25 | HHI.NSPN ---
(Monico Ordoñez) History Chief Complaint: left leg pain. (Monico Ordoñez) Interval History 02/25/18: Pt complains of incisional pain and pain radiating into the left lateral leg. He states he didn't sleep much last night secondary to the pain. He states he got a shot of Morphine this morning and that has helped. He also has numbness in the left leg although he states it is improving since surgery. (Monico Ordoñez) Review of Systems General: Negative for: fever, chills, insomnia Respiratory: Negative for: shortness of breath, cough, sputum Cardiovascular: Negative for: chest pain Gastrointestinal: Negative for: nausea, vomitting, diarrhea, constipation ( Monico Ordoñez) Exam Results Vital Signs Date Time Temp Pulse Resp B/P (MAP) Pulse Ox O2 Delivery O2 Flow Rate FiO2 02/25/18 08:00 98.2 75 16 163/76 (105) 96 02/25/18 07:11 Room Air 02/24/18 14:15 3 Intake and Output 02/25/18 02/25/18 02/26/18 08:00 16:00 00:00 Output Total 950 ml Balance -950 ml (Monico Ordoñez) Physical Examination General: Pt resting in bed on his back in NAD currently. Eyes: Pupils equal sclera anicteric. Resp: CTA bilaterally Heart: NSR no murmurs Abd: Soft positive bs Skin: No cyanosis or erythema Muscle: Moves LEs with left foot drop. Otherwise 5/5 strength LEs. Neuro: Pt awake and alert. Follows commands well. Pt has numbness in left leg. (Monico Ordoñez) Lab, Micro, Other Results Last Impressions Lumbar Spine X-Ray 02/24/18 0000 Signed Impressions: CONCLUSION: Images document posterior fusion hardware at L4 and L5. Laboratory Tests Test 02/24/18 13:30 White Blood Count 8.0 TH/MM3 Red Blood Count 3.59 MIL/MM3 Hemoglobin 11.5 GM/DL Hematocrit 33.2 % Mean Corpuscular Volume 92.5 FL Mean Corpuscular Hemoglobin 32.0 PG Mean Corpuscular Hemoglobin Concent 34.6 % Red Cell Distribution Width 13.5 % Platelet Count 157 TH/MM3 Mean Platelet Volume 8.5 FL Neutrophils (%) (Auto) 89.4 % Lymphocytes (%) (Auto) 7.0 % Monocytes (%) (Auto) 3.0 % Eosinophils (%) (Auto) 0.4 % Basophils (%) (Auto) 0.2 % Neutrophils # (Auto) 7.2 TH/MM3 Lymphocytes # (Auto) 0.6 TH/MM3 Monocytes # (Auto) 0.2 TH/MM3 Eosinophils # (Auto) 0.0 TH/MM3 Basophils # (Auto) 0.0 TH/MM3 CBC Comment DIFF FINAL Differential Comment Blood Urea Nitrogen 20 MG/DL Creatinine 1.29 MG/DL Random Glucose 144 MG/DL Calcium Level 8.1 MG/DL Magnesium Level 2.0 MG/DL Sodium Level 143 MEQ/L Potassium Level 3.8 MEQ/L Chloride Level 109 MEQ/L Carbon Dioxide Level 25.7 MEQ/L Anion Gap 8 MEQ/L Estimat Glomerular Filtration Rate 54 ML/MIN (Monico Ordoñez) Medical Decision Making Impression and Plan A: 77 y/o M s/p L4/L5 TLIF with cage and pedicle screw fixation. P: Continue with pain control PT oob with LSO brace on (Monico Ordoñez) Attending Statement The exam, history, and the medical decision-making described in the above note were completed with the assistance of the mid-level provider. I reviewed and agree with the findings presented. I attest that I had a [id number] encounter with the patient on the same day, and personally performed and documented my assessment and findings in the medical record. (Avery Pelaez MD) Monico Ordoñez Feb 25, 2018 1:25 pm Avery Pelaez MD Feb 25, 2018 5:19 pm
[2018-02-25 16:00] VITALS: BP 134/63; PULSE 76; RESP 16; TEMP 98.4; O2SAT 94
[2018-02-25 20:00] VITALS: BP 148/67; PULSE 83; RESP 18; TEMP 98.8; O2SAT 95
[2018-02-25] MEDS: FAMOTIDINE 20 MG TAB PO SCH (20:55)
[2018-02-25] MEDS: TERAZOSIN HCL 5 MG CAP PO SCH (20:55)
[2018-02-25] MEDS: ZOLPIDEM TARTRATE 5 MG TAB PO PRN (22:57)
[2018-02-26 00:01] VITALS: BP 148/60; PULSE 74; RESP 18; TEMP 98.2; O2SAT 95
[2018-02-26] MEDS: CYCLOBENZAPRINE HCL 10 MG TAB PO PRN ×2 (01:05→23:32)
[2018-02-26] MEDS: ACETAMINOPHEN/HYDROcodone 325 MG/10 MG TAB PO PRN ×3 (01:07→20:30)
[2018-02-26] MEDS: MORPHINE SULFATE 4 MG/ML INJ IV PUSH PRN (04:08)
[2018-02-26] MEDS: NS + KCL 20 MEQ INJ 1,000 ML IV SCH (05:42)
[2018-02-26] MEDS: SODIUM CHLOR 0.9% 1000 ML INJ 1,000 ML IV SCH (06:15)
[2018-02-26 08:00] VITALS: BP 167/79; PULSE 87; RESP 16; TEMP 98.2; O2SAT 95
[2018-02-26] MEDS: SODIUM CHLORIDE 0.9% FLUSH 10 ML FLUSH IV FLUSH SCH ×2 (09:00→20:30)
[2018-02-26] MEDS: LOSARTAN 50 MG TAB PO SCH (09:11)
[2018-02-26] MEDS: DOCUSATE SODIUM 50 MG/SENNA 8.6 MG TAB PO SCH ×2 (09:11→20:30)
[2018-02-26] MEDS: MULTIVITAMIN TAB PO SCH (09:11)
[2018-02-26] MEDS: ASPIRIN EC 325 MG TABEC PO SCH (09:12)
[2018-02-26] MEDS: PANTOPRAZOLE SOD 40 MG DELAYED RELEASE TAB PO SCH (09:12)
[2018-02-26] MEDS ORDERED: KETOROLAC TROMETHAMINE 30 MG/ML (IVP) VIAL IV PUSH ONE ×2 (09:30→09:45)
--- NOTE | 2018-02-26 09:33 | HHI.NSPN ---
(Monico Ordoñez) History Chief Complaint: left leg pain. (Monico Ordoñez) Interval History 02/25/18: Pt complains of incisional pain and pain radiating into the left lateral leg. He states he didn't sleep much last night secondary to the pain. He states he got a shot of Morphine this morning and that has helped. He also has numbness in the left leg although he states it is improving since surgery. 02/26/18: Pt complains of left leg pain in lateral aspect. He has chronic left dorsiflexion/EHL weakness. Left leg numbness. He states he had a better night last night with pain but this morning started again and is intense. (Monico Ordoñez) Review of Systems General: Negative for: fever, chills, insomnia Respiratory: Negative for: shortness of breath, cough, sputum Cardiovascular: Negative for: chest pain Gastrointestinal: Negative for: nausea, vomitting, diarrhea, constipation ( Monico Ordoñez) Exam Results Vital Signs Date Time Temp Pulse Resp B/P (MAP) Pulse Ox O2 Delivery O2 Flow Rate FiO2 02/26/18 08:00 98.2 87 16 167/79 (108) 95 02/26/18 07:16 Room Air 02/24/18 14:15 3 Intake and Output 02/26/18 02/26/18 02/27/18 08:00 16:00 00:00 Intake Total 1237 ml Output Total 1500 ml 125 ml Balance -263 ml -125 ml (Monico Ordoñez) Physical Examination General: Pt sitting up in chair complaining of left leg pain. Eyes: Pupils equal sclera anicteric. Resp: CTA bilaterally Heart: NSR no murmurs Abd: Soft positive bs Skin: No cyanosis or erythema. Bandage changed this morning by RN. Muscle: Moves LEs with chronic left foot drop. Neuro: Pt awake and alert. Follows commands well. Pt has numbness in left leg. (Monico Ordoñez) Lab, Micro, Other Results Last Impressions Lumbar Spine X-Ray 02/24/18 0000 Signed Impressions: CONCLUSION: Images document posterior fusion hardware at L4 and L5. 02/26/18 02/26/18 02/27/18 15:00 23:00 07:00 Intake Total 360 ml Output Total 1625 ml Balance -1265 ml Intake Oral 360 ml Output Urine Total 1625 ml (Monico Ordoñez) Medical Decision Making Impression and Plan A: 77 y/o M s/p L4/L5 TLIF with cage and pedicle screw fixation. P: Continue with pain control PT oob with LSO brace on Will try Toradol 15mg IV x 1 to see if we can decrease his inflammation and increase his activity with PT. (Monico Ordoñez) Attending Statement The exam, history, and the medical decision-making described in the above note were completed with the assistance of the mid-level provider. I reviewed and agree with the findings presented. I attest that I had a [id number] encounter with the patient on the same day, and personally performed and documented my assessment and findings in the medical record. Pain better controlled today. Ambulates short distance with PT using a walker. Left foot drop with some improvement. relates that she will not be able to take care of him at home since she has significant cardiac disease. Will plan on rehab placement. (Avery Pelaez MD) Monico Ordoñez Feb 26, 2018 09:33 Avery Pelaez MD Feb 26, 2018 13:48
[2018-02-26 12:00] VITALS: BP 147/71; PULSE 93; RESP 18; TEMP 98.1; O2SAT 94
[2018-02-26 16:00] VITALS: BP 138/70; PULSE 71; RESP 17; TEMP 97.9; O2SAT 96
[2018-02-26 20:00] VITALS: BP 147/72; PULSE 92; RESP 17; TEMP 100.8; O2SAT 96
[2018-02-26] MEDS: FAMOTIDINE 20 MG TAB PO SCH (20:30)
[2018-02-26] MEDS: TERAZOSIN HCL 5 MG CAP PO SCH (20:30)
[2018-02-27] VITALS: BP 167/79; PULSE 75; RESP 17; TEMP 98; O2SAT 94
[2018-02-27] MEDS: ACETAMINOPHEN/HYDROcodone 325 MG/10 MG TAB PO PRN ×2 (01:18→08:19)
[2018-02-27] MEDS: CYCLOBENZAPRINE HCL 10 MG TAB PO PRN (08:17)
[2018-02-27] MEDS: ASPIRIN EC 325 MG TABEC PO SCH (08:17)
[2018-02-27] MEDS: SODIUM CHLORIDE 0.9% FLUSH 10 ML FLUSH IV FLUSH SCH (08:17)
[2018-02-27] MEDS: PANTOPRAZOLE SOD 40 MG DELAYED RELEASE TAB PO SCH (08:17)
[2018-02-27] MEDS: DOCUSATE SODIUM 50 MG/SENNA 8.6 MG TAB PO SCH (08:17)
[2018-02-27] MEDS: LOSARTAN 50 MG TAB PO SCH (08:17)
[2018-02-27] MEDS: MULTIVITAMIN TAB PO SCH (08:17)
--- NOTE | 2018-02-27 09:42 | HHI.NSPN ---
(Monico Ordoñez) History Chief Complaint: left leg pain. (Monico Ordoñez) Interval History 02/25/18: Pt complains of incisional pain and pain radiating into the left lateral leg. He states he didn't sleep much last night secondary to the pain. He states he got a shot of Morphine this morning and that has helped. He also has numbness in the left leg although he states it is improving since surgery. 02/26/18: Pt complains of left leg pain in lateral aspect. He has chronic left dorsiflexion/EHL weakness. Left leg numbness. He states he had a better night last night with pain but this morning started again and is intense. 02/27/18: Pt complains of left lateral leg pain. He has weakness with left dorsiflexion and EHL. Numbness in left leg. constipated. (Monico Ordoñez) Review of Systems General: Negative for: fever, chills, insomnia Respiratory: Negative for: shortness of breath, cough, sputum Cardiovascular: Negative for: chest pain, palpitations, orthopnea Gastrointestinal: Positive for: constipation, Negative for: nausea, vomitting, diarrhea Genitourinary: Negative for: urinary burning, urinary frequency, urinary urgency (Monico Ordoñez) Exam Results Vital Signs Date Time Temp Pulse Resp B/P (MAP) Pulse Ox O2 Delivery O2 Flow Rate FiO2 02/27/18 00:00 98.0 75 17 167/79 (108) 94 02/26/18 20:00 Room Air 02/24/18 14:15 3 Intake and Output 02/27/18 02/27/18 02/28/18 08:00 16:00 00:00 Intake Total 360 ml Output Total 350 ml Balance 10 ml (Monico Ordoñez) Physical Examination General: Pt resting in bed in NAD currently. Eyes: Pupils equal sclera anicteric. Resp: CTA bilaterally Heart: NSR no murmurs Abd: Soft positive bs. He does feel distended but soft and positive bs. Skin: No cyanosis or erythema Muscle: Moves LEs with left foot drop. Otherwise 5/5 strength LEs. Neuro: Pt awake and alert. Follows commands well. Pt has numbness in left leg. (Monico Ordoñez) Lab, Micro, Other Results Last Impressions Lumbar Spine X-Ray 02/24/18 0000 Signed Impressions: CONCLUSION: Images document posterior fusion hardware at L4 and L5. (Monico Ordoñez) Medical Decision Making Impression and Plan A: 77 y/o M s/p L4/L5 TLIF with cage and pedicle screw fixation. P: Continue with pain control PT oob with LSO brace on Dulcolax suppository. Rehab placement. (Monico Ordoñez) Attending Statement The exam, history, and the medical decision-making described in the above note were completed with the assistance of the mid-level provider. I reviewed and agree with the findings presented. I attest that I had a [id number] encounter with the patient on the same day, and personally performed and documented my assessment and findings in the medical record. (Avery Pelaez MD) Monico Ordoñez Feb 27, 2018 09:42 Avery Pelaez MD Feb 27, 2018 12:39
[2018-02-27] MEDS ORDERED: CYCL10TA PO (10:06)
[2018-02-27] MEDS ORDERED: BISACODYL 10 MG SUPP RECTAL ONE (10:30)
[2018-02-27 11:52] VITALS: BP 158/78; PULSE 79; RESP 18; TEMP 98.2; O2SAT 93
[2018-02-27] MEDS ORDERED: HYDR-3366 PO (12:39)
[2018-02-27 12:40] VITALS: RESP 18
== END 2018-02-27 13:39 | DRG 460 ==
LOC: HSDI 06:00 → N06B 14:28
PROVIDERS: ADMIT Neurological Surgery; ATTEND Neurological Surgery
PROC: 0SB20ZZ Excision of Lumbar Vertebral Disc, Open Approach (ICD-10-PCS; 2018-02-24)
PROC: 00QT0ZZ Repair Spinal Meninges, Open Approach (ICD-10-PCS; 2018-02-24)
PROC: 0SG00AJ Fusion of Lumbar Vertebral Joint with Interbody Fusion Device, Posterior Approach, Anterior Column, Open Approach (ICD-10-PCS; principal; 2018-02-24 08:41)
DX: M96.1 Postlaminectomy syndrome, not elsewhere classified (principal); G96.0 Cerebrospinal fluid leak; I10 Essential (primary) hypertension; M51.16 Intervertebral disc disorders with radiculopathy, lumbar region; K59.00 Constipation, unspecified; M51.26 Other intervertebral disc displacement, lumbar region; M43.16 Spondylolisthesis, lumbar region; M79.605 Pain in left leg; M48.061 Spinal stenosis, lumbar region without neurogenic claudication; R60.9 Edema, unspecified; R20.0 Anesthesia of skin; R20.2 Paresthesia of skin; M54.9 Dorsalgia, unspecified; M79.604 Pain in right leg; K21.9 Gastro-esophageal reflux disease without esophagitis; E78.5 Hyperlipidemia, unspecified; Z79.82 Long term (current) use of aspirin; Z86.718 Personal history of other venous thrombosis and embolism; Z85.828 Personal history of other malignant neoplasm of skin
CPT/HCPCS: 72100; 76000; 80048; 83735; 85025; 86850; 86900; 86901; 94150; C1713; J0131; J0690; J1100; J1885; J2175; J2250; J2270; J2370; J2405; J2710; J3010; J3370; J3480; J7120; L0627

== ENCOUNTER 2018-04-13 14:52 | Inpatient (IN) ==
[2018-04-13] MEDS ORDERED: Heparin 10,000 UNITS/10 ML Vial (for IV use) IV.PUSH STA (15:30)
--- NOTE | 2018-04-13 15:48 | ED ---
HPI General Chief complaint: Recheck/Abnormal Lab/Rx Stated complaint: Phys sent Time Seen by Provider: 04/13/18 15:17 Source: patient and family Mode of arrival: ambulatory Limitations: no limitations History of Present Illness HPI narrative: Patient is a 77 year old male who was sent to the emergency room for evaluation of bilateral DVTs. Patient reports that he is a patient of Dr. Avery Pelaez. Reports that he had back surgery on February 24. Since Friday, he has been having severe pains to his legs. Reports worst pains to his left lower extremity. Patient was sent to [facility] for an ultrasound of his legs. Patient was told that he had multiple bilateral DVTs. Ultrasound report shows: Right lower extremity: Echogenic noncompressible material is seen throughout the superficial femoral vein, popliteal vein and into the peroneal vein. This is largely nonocclusive with the exception of the occlusive thrombus involving the mid superficial femoral vein. Left lower extremity: Echogenic noncompressible material is seen involving the popliteal vein which is nonocclusive in nature. Thrombus is also seen involving the posterior tibial vein which is occlusive. Remaining venous structures are unremarkable. 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 Patient denies any chest pain or shortness of breath. Related Data Home Medications Medication Instructions Recorded Confirmed amitriptyline 25 mg PO DAILY 04/13/18 04/13/18 ranitidine HCl [Zantac] 150 mg PO HS 04/13/18 04/13/18 Previous Rx's Medication Instructions Recorded baclofen 10 mg PO Q8HR #90 tab 03/17/18 acetaminophen 650 mg PO Q4H PRN #100 tab 03/25/18 amitriptyline 25 mg PO HS #30 tab 03/25/18 aspirin 325 mg PO DAILY #30 tab 03/25/18 gabapentin [Neurontin] 900 mg PO Q8H #270 cap 03/25/18 losartan 75 mg PO DAILY #50 tab 03/25/18 uzalwtyh-rgp-IQ-lycopen-lutein 1 tab PO DAILY #30 tab 03/25/18 omeprazole 40 mg PO DAILY #30 cap 03/25/18 terazosin 5 mg PO HS #30 tab 03/25/18 oxycodone-acetaminophen 1 tab PO Q6H PRN #30 tab 03/26/18 Allergies Allergy/AdvReac Type Severity Reaction Status Date / Time jared Allergy Intermediate ITCHING, Verified 02/28/18 17:14 BURNING squid Allergy Intermediate ITCHING, Verified 02/28/18 17:14 BURNING IN FACE No Known Drug Allergies Allergy Unknown Verified 02/28/18 17:15 Review of Systems ROS: all other systems reviewed are negative PMFSH History History Provided By: Patient Medical History Medical History DVT (deep venous thrombosis) (Acute) HTN (hypertension) (Acute) Hyperlipidemia (Acute) Spinal stenosis (Acute) Surgical History Surgical History H/O laminectomy (Acute) Family History Family History Other HTN (hypertension) Lung cancer Social History Social History Substance History: No History of Abuse Second Hand Smoke Exposure: No Smoking Status: Never smoker How Often Do You Have a Drink Containing Alcohol: Monthly or less Recent Travel in [facility] within the Last 8 Weeks: No Recent Out of Country Travel within the Last 8 Weeks: No Exam Narrative Exam Narrative: GENERAL: Moderate distress SKIN: Focused skin assessment warm/dry. HEAD: Atraumatic. Normocephalic. EYES: Pupils equal and round. No scleral icterus. No injection or drainage. ENT: No nasal bleeding or discharge. Mucous membranes pink and moist. NECK: Trachea midline. No JVD. CARDIOVASCULAR: Regular rate and rhythm. No murmur appreciated. RESPIRATORY: No accessory muscle use. Clear to auscultation. Breath sounds equal bilaterally. GASTROINTESTINAL: Abdomen soft, non-tender, nondistended. Hepatic and splenic margins not palpable. MUSCULOSKELETAL: No obvious deformities. No clubbing. No cyanosis. No edema. Patient with b/l calf tenderness Course Initial Documented Vital Signs Temperature 98.2 F 04/13/18 15:10 Pulse Rate 80 04/13/18 15:10 Respiratory Rate 17 04/13/18 15:10 Blood Pressure 104/57 L 04/13/18 15:10 Pulse Oximetry 98 04/13/18 15:10 Last Documented Vital Signs Temperature 98.2 F 08/13/18 15:10 Pulse Rate 75 04/13/18 15:30 Respiratory Rate 17 04/13/18 15:10 Blood Pressure 104/57 L 04/13/18 15:10 Pulse Oximetry 95 04/13/18 15:30 Medical Decision Making MDM Narrative Medical decision making narrative: Patient with dvt to b/l le's - will start heparin/heparin drip - CTA ordered to rule out PE given the fact he has multiple clots in his legs case reviewed with Dr. Garrett who accepts pt to service cta with small amountof PE in right lower lobe of lung - patient aware of ct findings Differential Diagnosis Differential Diagnosis: DVT/PE Medical Records Medical records reviewed: Yes I reviewed the patient's medical records. Lab Data Result diagrams: 04/13/18 16:00 04/13/18 16:00 Lab Results 04/13/18 04/13/18 04/13/18 Range/Units 16:00 16:00 16:00 WBC 4.7 (4.0-11.0) th/mm3 RBC 3.62 L (4.50-5.90) mil/mm3 Hgb 11.5 L (13.0-17.0) gm/dL Hct 33.3 L (39.0-51.0) % MCV 91.9 (80.0-100.0) fL MCH 31.6 (27.0-34.0) pg MCHC 34.4 (32.0-36.0) % RDW 14.9 (11.6-17.2) % Plt Count 214 (150-450) th/mm3 MPV 7.5 (7.0-11.0) fL Neut % (Auto) 66.4 (16.0-70.0) % Lymph % (Auto) 20.9 (9.0-44.0) % Stafford % (Auto) 8.9 H (0.0-8.0) % Eos % (Auto) 3.2 (0.0-4.0) % Baso % (Auto) 0.6 (0.0-2.0) % Neut # (Auto) 3.1 (1.8-7.7) th/mm3 Lymph # (Auto) 1.0 (1.0-4.8) th/mm3 Stafford # (Auto) 0.4 (0.0-0.9) th/mm3 Eos # (Auto) 0.2 (0.0-0.4) th/mm3 Baso # (Auto) 0.0 (0.0-0.2) th/mm3 WBC Differential . Differential Comment Auto diff final PT 9.9 (9.8-11.6) sec INR 1.0 Ratio APTT 27.6 (24.3-30.1) sec Sodium 140 (136-145) meq/L Potassium 3.8 (3.5-5.1) meq/L Chloride 106 (98-107) meq/L Carbon Dioxide 25.2 (21.0-32.0) meq/L Anion Gap 9 (5-15) meq/L BUN 25 H (7-18) mg/dL Creatinine 1.21 (0.60-1.30) mg/dL Estimated GFR 58 L (>89) mL/min Random Glucose 112 H (74-106) mg/dL Calcium 8.9 (8.5-10.1) mg/dL 04/13/18 Range/Units 16:00 WBC (4.0-11.0) th/mm3 RBC (4.50-5.90) mil/mm3 Hgb (13.0-17.0) gm/dL Hct (39.0-51.0) % MCV (80.0-100.0) fL MCH (27.0-34.0) pg MCHC (32.0-36.0) % RDW (11.6-17.2) % Plt Count (150-450) th/mm3 MPV (7.0-11.0) fL Neut % (Auto) (16.0-70.0) % Lymph % (Auto) (9.0-44.0) % Stafford % (Auto) (0.0-8.0) % Eos % (Auto) (0.0-4.0) % Baso % (Auto) (0.0-2.0) % Neut # (Auto) (1.8-7.7) th/mm3 Lymph # (Auto) (1.0-4.8) th/mm3 Stafford # (Auto) (0.0-0.9) th/mm3 Eos # (Auto) (0.0-0.4) th/mm3 Baso # (Auto) (0.0-0.2) th/mm3 WBC Differential Differential Comment PT Cancelled (9.8-11.6) sec INR Cancelled Ratio APTT Cancelled (24.3-30.1) sec Sodium (136-145) meq/L Potassium (3.5-5.1) meq/L Chloride (98-107) meq/L Carbon Dioxide (21.0-32.0) meq/L Anion Gap (5-15) meq/L BUN (7-18) mg/dL Creatinine (0.60-1.30) mg/dL Estimated GFR (>89) mL/min Random Glucose (74-106) mg/dL Calcium (8.5-10.1) mg/dL Imaging Data Attestation: I personally reviewed and interpreted this imaging study as follows : Radiologist's impression: Chest CTA 04/13/18 16:26 CONCLUSION: 1. Small amount of pulmonary emboli in the right lower lobe pulmonary arteries. Discharge Plan Discharge Disposition Patient Disposition: 30 Still Patient Discharge Condition Condition: Stable Physicians Team ED Provider: Adilia Leon Primary Care Provider: Mildred Santana Attending Provider: Patricia Roldan Status ED Status: Admitted Patient
[2018-04-13] MEDS: Heparin Drip 25,000 UNIT/250 ML BAG IV.CONT PRN (15:57)
[2018-04-13 16:26] LABS: Baso % (Auto) 0.6 % (0.0-2.0); Eos # (Auto) 0.2 th/mm3 (0.0-0.4); Eos % (Auto) 3.2 % (0.0-4.0); Hematocrit 33.3 % (39.0-51.0); Hemoglobin 11.5 gm/dL (13.0-17.0); Lymph % (Auto) 20.9 % (9.0-44.0); Mean Corpuscular HGB Conc 34.4 % (32.0-36.0); Mean Corpuscular Hemoglobin 31.6 pg (27.0-34.0); Mean Corpuscular Volume 91.9 fL (80.0-100.0); Mean Platelet Volume 7.5 fL (7.0-11.0); Mono # (Auto) 0.4 th/mm3 (0.0-0.9); Mono % (Auto) 8.9 % (0.0-8.0); Neut # (Auto) 3.1 th/mm3 (1.8-7.7); Neut % (Auto) 66.4 % (16.0-70.0); Platelet Count 214 th/mm3 (150-450); Red Blood Count 3.62 mil/mm3 (4.50-5.90); Red Cell Distribution Width 14.9 % (11.6-17.2); White Blood Count 4.7 th/mm3 (4.0-11.0)
[2018-04-13 16:33] LABS: Activated Partial Thrombo Time 27.6 sec (24.3-30.1); Prothrombin Time 9.9 sec (9.8-11.6)
[2018-04-13 16:41] LABS: Calcium 8.9 mg/dL (8.5-10.1); Carbon Dioxide 25.2 meq/L (21.0-32.0); Potassium 3.8 meq/L (3.5-5.1)
[2018-04-13] MEDS ORDERED: Bisacodyl 10 MG Supp RECTAL PRN (18:18)
--- NOTE | 2018-04-13 18:52 | ECG ---
Date Performed: 04/13/2018 Time Performed: 16:07:30 PTAGE: 77 years EKG: Sinus rhythm INCOMPLETE RIGHT BUNDLE BRANCH BLOCK LEFT ANTERIOR FASCICULAR BLOCK MODERATE VOLTAGE CRITERIA FOR LV H, CONSIDER NORMAL VARIANT POSSIBLE SEPTAL MYOCARDIAL INFARCTION PROBABLE LATERAL MYOCARDIAL INFARCTI ON ABNORMAL ECG Compared to prior electrocardiogram, Nonspecific T-wave changes have improved. PREVIOUS TRACING : 11/17/2017 12.30 DOCTOR: Louie Weir Interpretating Date/Time 04/13/2018 18:51:08
--- NOTE | 2018-04-13 19:11 | CT ---
EXAM DATE: 04/13/2018 7:00 PM EDT AGE/SEX: 77 years / Male INDICATIONS: Bilateral DVT back pain between shoulder blades CLINICAL DATA: This is the patient's initial encounter. Patient reports that signs and symptoms have been present for 1 day and indicates a pain score of 8/10. MEDICAL/SURGICAL HISTORY: Deep venous thrombosis. Hypertension. Spinal stenosis None. RADIATION DOSE: 23.01 CTDI (mGy) COMPARISON: [facility] – [place], CTA CHEST W 3D RECON, 02/28/2012. . TECHNIQUE: Volumetric scanning was performed using a multi-row detector CT scanner during bolus infu charmaine of 70 ml Omnipaque 350 (iohexol) nonionic water-soluble contrast as a single exam dose. The sparkle a was post processed with a variety of visualization algorithms including full volume maximum intensi ty projection and sliding thin slab reformation. Using automated exposure control and adjustment of t he mA and/or kV according to patient size, radiation dose was kept as low as reasonably achievable to obtain optimal diagnostic quality images. DICOM format image data is available electronically for r eview and comparison. FINDINGS: Pulmonary Arteries: There are small filling defects in one of the right lower lobe pulmonary arterie s. This is seen on axial source image #[id number].. The left and right pulmonary arteries are normal in diam eter. Lung: No infiltrates seen. Effusion: None. Mediastinum: No evidence of mediastinal or hilar adenopathy. Coronary artery calcifications are pres ent. Other: The axilla is unremarkable. CONCLUSION: 1. Small amount of pulmonary emboli in the right lower lobe pulmonary arteries. Electronically signed by: Nickolas Dyer MD 04/13/2018 7:10 PM EDT
--- NOTE | 2018-04-13 21:59 | P.HP ---
History of Present Illness Service: [facility] Primary Care Physician: Mildred Santana MD History of Present Illness: 77-year-old male with a past medical history significant for hypertension, hyperlipidemia and previous right-sided DVT presents the emergency department for the evaluation of bilateral lower extremity pain. The patient had back surgery on 02/24 and was recently discharged from rehab. Since Friday, the patient has been having severe pains to his legs, right greater than left. He was sent to [facility] for an ultrasound of the legs. He was told that he had multiple bilateral DVTs and sent to the emergency department for further evaluation. He denies any chest pain or shortness of breath. No abdominal pain. No nausea/vomiting/diarrhea. No fever/chills. No lateralizing signs/ symptoms. Inpatient Certification: I certify that the inpatient services were ordered in accordance with Medicare regulations governing the order. This includes certification that hospital inpatient services are reasonable and necessary and in the case of services not specified as inpatient-only under 42 CFR 419.22(n), that they are appropriately provided as inpatient services in accordance to with the 2-midnight benchmark under 43 CFR 412.3(e) Estimated Total Length of Stay (Days): 3 Plans for Post Hospital Care: Not yet determined Review of Systems All other systems reviewed negative except as stated in HPI [facility] - History History Provided By: Patient - Medical History Medical History: Medical History (Last Updated 04/13/18 @ 15:47 by Adilia Leon) DVT (deep venous thrombosis) HTN (hypertension) Hyperlipidemia Spinal stenosis - Surgical History Surgical History: Surgical History (Last Reviewed 04/13/18 @ 15:47 by Adilia Leon) H/O laminectomy - Family History Family History: Family History (Last Reviewed 04/13/18 @ 15:47 by Adilia Leon) Other HTN (hypertension) Lung cancer - Tobacco History Second Hand Smoke Exposure: No Tobacco Use In Past 30 Days: No Smoking Status: Never smoker - Alcohol History How Often Do You Have a Drink Containing Alcohol: Monthly or less - Substance Use History Substance History: No History of Abuse - Travel History Recent Travel in the [place] Within the Last 8 Weeks: No Recent Travel Out of the Country Within the Last 8 Weeks: No - Immunization History Tetanus Immunization: >5 Years Hx Influenza Vaccine This Season: Yes Medications and Allergies Active Medications: Active Medications Al Hydroxide/Mg Hydroxide (Milk Of Clarice Liq) 30 ml PO Q12H PRN PRN Reason: Mild Constipation Bisacodyl (Dulcolax Supp) 10 mg RECTAL DAILY PRN PRN Reason: SEVERE CONSITIPATION Heparin Sodium/Dextrose (Heparin/D5w 25,000 U/250 Ml) 25,000 unit in 250 mls @ 0 mls/hr IV.CONT TITRATE PRN; Protocol PRN Reason: Per Protocol Last Admin: 04/13/18 15:57 Dose: 1,600 units/hr, 16 mls/hr Lactulose (Lactulose Liq) 30 ml PO DAILY PRN PRN Reason: SEVERE CONSITIPATION Ondansetron HCl (Zofran Inj) 4 mg IV.PUSH Q6H PRN PRN Reason: NAUSEA OR VOMITING Sennosides (Senokot) 17.2 mg PO Q12H PRN PRN Reason: Moderate Constipation Sodium Chloride (Ns Flush) 2 ml IV.FLUSH UNSCH PRN PRN Reason: FLUSH AFTER USING IV ACCESS Last Admin: 04/13/18 16:01 Dose: 2 ml Sodium Chloride (Ns Flush) 2 ml IV.FLUSH BID TOM Allergies Allergy/AdvReac Type Severity Reaction Status Date / Time jared Allergy Intermediate ITCHING, Verified 02/28/18 17:14 BURNING squid Allergy Intermediate ITCHING, Verified 02/28/18 17:14 BURNING IN FACE No Known Drug Allergies Allergy Unknown Verified 02/28/18 17:15 Home Medications Medication Instructions Recorded Confirmed Type amitriptyline 25 mg PO DAILY 04/13/18 04/13/18 History ranitidine HCl [Zantac] 150 mg PO HS 04/13/18 04/13/18 History Exam Vital signs: Vital Signs 04/13/18 15:10 04/13/18 15:30 04/13/18 18:18 Temperature 98.2 F Pulse Rate 80 75 66 Respiratory Rate 17 18 Blood Pressure 104/57 L 122/61 Pulse Oximetry 98 95 97 04/13/18 20:54 Temperature Pulse Rate 64 Respiratory Rate 18 Blood Pressure 113/78 Pulse Oximetry 97 Intake & Output 04/13/18 04/13/18 04/14/18 06:59 18:59 06:59 Weight 90.718 kg Narrative: Gen.: No acute distress Head: Normocephalic. Atraumatic. EENT: Pupils equal round and reactive to light. Nose without drainage. Airway intact. Throat without injection. Cardiovascular: Regular rate and rhythm. No murmurs, rubs or gallops. Respiratory: Lungs clear to auscultation bilaterally. No wheezes or rhonchi. Abdomen: Soft, nontender, nondistended. No peritoneal signs. Musculoskeletal: No gross deformities. No edema. Bilateral lower extremity calf tenderness. Skin: No obvious rashes or erythema. Neuro: Sensory and motor grossly intact. Cranial nerves II through XII grossly intact. Results - Labs CBC & Chem 7: 04/13/18 16:00 04/13/18 16:00 Labs: Laboratory Results - last 24 hr 04/13/18 04/13/18 04/13/18 16:00 16:00 16:00 WBC 4.7 RBC 3.62 L Hgb 11.5 L Hct 33.3 L MCV 91.9 MCH 31.6 MCHC 34.4 RDW 14.9 Plt Count 214 MPV 7.5 Neut % (Auto) 66.4 Lymph % (Auto) 20.9 Todd % (Auto) 8.9 H Eos % (Auto) 3.2 Baso % (Auto) 0.6 Neut # (Auto) 3.1 Lymph # (Auto) 1.0 Todd # (Auto) 0.4 Eos # (Auto) 0.2 Baso # (Auto) 0.0 WBC Differential . Differential Comment Auto diff final PT 9.9 INR 1.0 APTT 27.6 Sodium 140 Potassium 3.8 Chloride 106 Carbon Dioxide 25.2 Anion Gap 9 BUN 25 H Creatinine 1.21 Estimated GFR 58 L Random Glucose 112 H Calcium 8.9 04/13/18 16:00 WBC RBC Hgb Hct MCV MCH MCHC RDW Plt Count MPV Neut % (Auto) Lymph % (Auto) Todd % (Auto) Eos % (Auto) Baso % (Auto) Neut # (Auto) Lymph # (Auto) Todd # (Auto) Eos # (Auto) Baso # (Auto) WBC Differential Differential Comment PT Cancelled INR Cancelled APTT Cancelled Sodium Potassium Chloride Carbon Dioxide Anion Gap BUN Creatinine Estimated GFR Random Glucose Calcium - Imaging Impressions Chest CTA 04/13/18 16:26 CONCLUSION: 1. Small amount of pulmonary emboli in the right lower lobe pulmonary arteries. Caprini VTE Risk Assessment Caprini VTE Risk Assessment: Moderate/High Risk (score >= 2) Caprini Risk Assessment Model: Point Value = 1 Point Value = 2 Point Value = 3 Point Value = 5 Age 41-60 Minor surgery BMI > 25 kg/m2 Swollen legs Varicose veins or History of unexplained or recurrent spontaneous Oral contraceptives or hormone replacement Sepsis (< 1 month) Serious lung disease, including pneumonia (< 1 month) Abnormal pulmonary function Acute myocardial infarction Congestive heart failure (< 1 month) History of inflammatory bowel disease Medical patient at bed rest Age 61-74 Arthroscopic surgery Major open surgery (> 45 min) Laparoscopic surgery (> 45 min) Malignancy Confined to bed (> 72 hours) Immobilizing plaster cast Central venous access Age >= 75 History of VTE Family history of VTE Factor V Leiden Prothrombin [id number] Lupus anticoagulant Anticardiolipin antibodies Elevated serum homocysteine Heparin-induced thrombocytopenia Other congenital or acquired thrombophilia Stroke (< 1 month) Elective arthroplasty Hip, pelvis, or leg fracture Acute spinal cord injury (< 1 month) Prophylaxis Regimen: Total Risk Factor Score Risk Level Prophylaxis Regimen 0-1 Low Early ambulation 2 Moderate Order ONE of the following: *Sequential Compression Device (SCD) *Heparin 5000 units SQ BID 3-4 Higher Order ONE of the following medications: *Heparin 5000 units SQ TID *Enoxaparin/Lovenox 40 mg SQ daily (WT < 150 kg, CrCl > 30 mL/min) *Enoxaparin/Lovenox 30 mg SQ daily (WT < 150 kg, CrCl > 10-29 mL/min) *Enoxaparin/Lovenox 30 mg SQ BID (WT < 150 kg, CrCl > 30 mL/min) AND/OR *Sequential Compression Device (SCD) 5 or more Highest Order ONE of the following medications: *Heparin 5000 units SQ TID (Preferred with Epidurals) *Enoxaparin/Lovenox 40 mg SQ daily (WT < 150 kg, CrCl > 30 mL/min) *Enoxaparin/Lovenox 30 mg SQ daily (WT < 150 kg, CrCl > 10-29 mL/min) *Enoxaparin/Lovenox 30 mg SQ BID (WT < 150 kg, CrCl > 30 mL/min) AND *Sequential Compression Device (SCD) Assessment and Plan - Plan Assessment/plan: 1. Bilateral DVTs Ultrasound done at [facility] showed bilateral DVTs CTA showed a small amount of pulmonary emboli in the right lower lobe pulmonary arteries Heparin drip Echo Hematology consulted, appreciate recommendations 2. Chronic medical conditions: Hypertension, GERD, BPH Continue home medications 3. Recent back surgery Continue baclofengabapentin FEN Regular diet Electrolytes: Monitor and replete as needed Heparin drip
[2018-04-13] MEDS: Gabapentin 300 MG Capsule PO SCH (23:00)
[2018-04-13] MEDS: Baclofen 10 MG Tablet PO SCH (23:00)
[2018-04-14 04:54] LABS: Baso % (Auto) 0.7 % (0.0-2.0); Eos # (Auto) 0.2 th/mm3 (0.0-0.4); Eos % (Auto) 3.6 % (0.0-4.0); Hematocrit 32.9 % (39.0-51.0); Hemoglobin 11.5 gm/dL (13.0-17.0); Lymph # (Auto) 0.9 th/mm3 (1.0-4.8); Lymph % (Auto) 21.4 % (9.0-44.0); Mean Corpuscular HGB Conc 34.8 % (32.0-36.0); Mean Corpuscular Hemoglobin 31.5 pg (27.0-34.0); Mean Corpuscular Volume 90.5 fL (80.0-100.0); Mean Platelet Volume 7.3 fL (7.0-11.0); Mono # (Auto) 0.4 th/mm3 (0.0-0.9); Mono % (Auto) 10.1 % (0.0-8.0); Neut # (Auto) 2.7 th/mm3 (1.8-7.7); Neut % (Auto) 64.2 % (16.0-70.0); Platelet Count 190 th/mm3 (150-450); Red Blood Count 3.64 mil/mm3 (4.50-5.90); Red Cell Distribution Width 14.8 % (11.6-17.2); White Blood Count 4.2 th/mm3 (4.0-11.0)
[2018-04-14] MEDS: Gabapentin 300 MG Capsule PO SCH ×3 (05:33→21:36)
[2018-04-14] MEDS: Heparin Drip 25,000 UNIT/250 ML BAG IV.CONT PRN ×2 (05:34→21:37)
[2018-04-14] MEDS: Baclofen 10 MG Tablet PO SCH ×3 (05:34→21:36)
[2018-04-14] MEDS: Amitriptyline 25 MG Tablet PO SCH (08:46)
--- NOTE | 2018-04-14 12:17 | P.PNIM ---
Subjective Interval history: 77-year-old male with a past medical history significant for hypertension, hyperlipidemia and previous right-sided DVT presents the emergency department for the evaluation of bilateral lower extremity pain. The patient had back surgery on 02/24 and was recently discharged from rehab. Since Friday, the patient has been having severe pains to his legs, right greater than left. He was sent to [place] for an ultrasound of the legs. He was told that he had multiple bilateral DVTs and sent to the emergency department for further evaluation. He denies any chest pain or shortness of breath. No abdominal pain. No nausea/vomiting/diarrhea. No fever/chills. No lateralizing signs/ symptoms. 04-14 AWAIT HEMATOLOGY CONSULT HYPERCOAGULATION WORK UP CONTINUE HEPARIN DRIP HAS HISTORY OF DVT IN 2010 WILL DEFER TO ONCOLOGY FOR THIS Physical Exam Vital signs: Vital Signs 04/13/18 15:10 04/13/18 15:30 04/13/18 18:18 Temperature 98.2 F Pulse Rate 80 75 66 Respiratory Rate 17 18 Blood Pressure 104/57 L 122/61 Pulse Oximetry 98 95 97 04/13/18 20:54 04/14/18 00:00 04/14/18 04:00 Temperature 97.6 F 98.2 F Pulse Rate 64 58 L 61 Respiratory Rate 18 18 18 Blood Pressure 113/78 147/64 H 136/74 Pulse Oximetry 97 98 97 04/14/18 08:00 Temperature 97.8 F Pulse Rate 60 Respiratory Rate 16 Blood Pressure 139/76 Pulse Oximetry 96 Intake & Output 04/13/18 04/14/18 04/14/18 18:59 06:59 18:59 Intake Total 490 / 490 Output Total 300 / 300 Balance 190 / 190 Weight 90.718 kg 90.718 kg Intake: IV 250 / 250 Heparin/D5W 25,000 U/250 mL 25, 250 / 250 000 unit In 250 ml @ Per Protocol IV.CONT TITRATE PRN Rx #:[id number] Oral 240 / 240 Output: Urine 300 / 300 Other: Date of Last Bowel Movement 04/13/18 Weight On Admission 90.718 kg Narrative: Gen.: No acute distress Head: Normocephalic. Atraumatic. EENT: Pupils equal round and reactive to light. Nose without drainage. Airway intact. Throat without injection. Cardiovascular: Regular rate and rhythm. No murmurs, rubs or gallops. Respiratory: Lungs clear to auscultation bilaterally. No wheezes or rhonchi. Abdomen: Soft, nontender, nondistended. No peritoneal signs. Musculoskeletal: No gross deformities. No edema. Bilateral lower extremity calf tenderness. Skin: No obvious rashes or erythema. Neuro: Sensory and motor grossly intact. Cranial nerves II through XII grossly intact. Results - Labs CBC & Chem 7: 04/14/18 04:30 04/13/18 16:00 Laboratory Results - last 24 hr 04/13/18 04/13/18 04/13/18 16:00 16:00 16:00 WBC 4.7 RBC 3.62 L Hgb 11.5 L Hct 33.3 L MCV 91.9 MCH 31.6 MCHC 34.4 RDW 14.9 Plt Count 214 MPV 7.5 Neut % (Auto) 66.4 Lymph % (Auto) 20.9 [place] % (Auto) 8.9 H Eos % (Auto) 3.2 Baso % (Auto) 0.6 Neut # (Auto) 3.1 Lymph # (Auto) 1.0 [place] # (Auto) 0.4 Eos # (Auto) 0.2 Baso # (Auto) 0.0 WBC Differential . Differential Comment Auto diff final PT 9.9 INR 1.0 APTT 27.6 Sodium 140 Potassium 3.8 Chloride 106 Carbon Dioxide 25.2 Anion Gap 9 BUN 25 H Creatinine 1.21 Estimated GFR 58 L Random Glucose 112 H Calcium 8.9 04/13/18 04/13/18 04/14/18 16:00 21:50 04:30 WBC 4.2 RBC 3.64 L Hgb 11.5 L Hct 32.9 L MCV 90.5 MCH 31.5 MCHC 34.8 RDW 14.8 Plt Count 190 MPV 7.3 Neut % (Auto) 64.2 Lymph % (Auto) 21.4 [place] % (Auto) 10.1 H Eos % (Auto) 3.6 Baso % (Auto) 0.7 Neut # (Auto) 2.7 Lymph # (Auto) 0.9 L [place] # (Auto) 0.4 Eos # (Auto) 0.2 Baso # (Auto) 0.0 WBC Differential . Differential Comment Auto diff final PT Cancelled INR Cancelled APTT Cancelled 80.8 H D Sodium Potassium Chloride Carbon Dioxide Anion Gap BUN Creatinine Estimated GFR Random Glucose Calcium 04/14/18 04:30 WBC RBC Hgb Hct MCV MCH MCHC RDW Plt Count MPV Neut % (Auto) Lymph % (Auto) [place] % (Auto) Eos % (Auto) Baso % (Auto) Neut # (Auto) Lymph # (Auto) [place] # (Auto) Eos # (Auto) Baso # (Auto) WBC Differential Differential Comment PT INR APTT 62.5 H D Sodium Potassium Chloride Carbon Dioxide Anion Gap BUN Creatinine Estimated GFR Random Glucose Calcium - Imaging Impressions Chest CTA 04/13/18 16:26 CONCLUSION: 1. Small amount of pulmonary emboli in the right lower lobe pulmonary arteries. Assessment and Plan - Plan 1. Bilateral DVTs Ultrasound done at [place] [facility] showed bilateral DVTs CTA showed a small amount of pulmonary emboli in the right lower lobe pulmonary arteries Heparin drip Echo Hematology consulted, appreciate recommendations 2. Chronic medical conditions: Hypertension, GERD, BPH Continue home medications 3. Recent back surgery Continue baclofengabapentin FEN Regular diet Electrolytes: Monitor and replete as needed Heparin drip Code Status: FULL CODE Discussed Condition With: RN AND PT AND CM Discharge Planning: PENDING CLEARANCE BY HEMATOLOGY
[2018-04-14 13:33] LABS: D-Dimer 6.63 mg/L FEU (0.00-0.50)
[2018-04-14 17:24] LABS: Hemoglobin A1c 5.5 % (4.3-6.0)
--- NOTE | 2018-04-15 02:13 | MB ---
cc: Margaux Macias MD DATE: 04/14/2018 REASON FOR CONSULTATION: Consult requested by hospitalist for evaluation of lower leg DVT with pulmonary embolism. HISTORY OF PRESENT ILLNESS: Josue is a pleasant, 77-year-old male. His primary physician is Dr. Mildred Santana. The patient stated that he had an unprovoked DVT of the right lower extremity in 2010. He was treated with Coumadin for 6 months. He does not recall whether he had any hypercoagulable panel test at that time. 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 The patient underwent back surgery by Dr. Avery Pelaez, neurosurgeon, on 02/24/2018. The patient stated that he stayed in the hospital for 2 days and then he was discharged to rehabilitation. The patient stayed in rehabilitation for several weeks, and then he was discharged to home. The patient noticed that when he was at home, he was not that active. The patient subsequently noticed swelling of both lower legs and discomfort in the right lower extremity. He was also complaining of pain in the back of the right thigh. He had called Dr. Pelaez, who had arranged for him to have Doppler ultrasound, which was done at [facility]. The patient stated that this was done on Friday, and he was trying to reach his neurosurgeon over the weekend, but they were closed. Yesterday morning, he had called his primary physician, Dr. Santana about the swelling of both lower legs. Dr. Sanatna was able to get the results of the Doppler ultrasound which showed DVT, and he advised the patient to come to the emergency room. The patient came to the ER, and he had a CT angiogram of the chest which showed right-sided low volume pulmonary embolism. He is now on heparin. I have been asked to see him for further evaluation. The patient still has some shortness of breath. However, he states that this is improving. He has swelling of both lower legs, and that is also improving somewhat. He denies any bleeding episodes. The rest of the review of systems is negative. PAST MEDICAL HISTORY: Deep venous thrombosis of the right lower extremity in 2010, hypertension, hypercholesterolemia, spinal stenosis. PAST SURGICAL HISTORY: Laminectomy on 02/24/2018. ALLERGIES: None. MEDICATIONS: Prior to coming to the hospital, amitriptyline and Zantac. FAMILY HISTORY: No family history of thromboembolic disease. SOCIAL HISTORY: The patient does not smoke cigarettes and occasionally drinks alcohol. PHYSICAL EXAMINATION: GENERAL: He is a well-developed, well-nourished white male, in no apparent distress. VITAL SIGNS: Temperature 98.4, heart rate 69, blood pressure 120/70, O2 saturation 94%. OBJECTIVE: VITAL SIGNS: Stable. Afebrile. HEAD, EYES, EARS, NOSE, AND THROAT: Pupils equal, round, reactive to light and accommodation, extraocular movements intact. Anicteric. No oral lesions noted. No thrush noted. NECK: Supple. No JVD. No masses noted. LUNGS: Clear. No wheezing, rhonchi, or rales. HEART: Regular rate and rhythm. No murmur heard. ABDOMEN: Soft and nontender. No hepatosplenomegaly. No abnormal bowel sounds. No guarding or rigidity noted. EXTREMITIES: Bilateral leg edema noted. No cyanosis, no clubbing. NEUROLOGIC: Awake, alert, oriented x 3. Sensory and motor seem to be intact. SKIN: No bruises or petechiae noted. BREASTS: No masses noted. LYMPH NODES: No cervical, supraclavicular, or axillary lymphadenopathy noted. BACK: There is no spinal tenderness noted. ASSESSMENT: 1. Deep venous thrombosis of the lower extremity with low burden pulmonary embolus on the right side. The patient is currently on heparin. 2. Prior history of deep venous thrombosis of the right lower extremity in 2010 and was treated with 6 months of Coumadin. PLAN: I have reviewed his available records, and I have discussed with the patient regarding the DVT and pulmonary embolism. The patient stated that in 2010 he went on a cruise with his , and when they came back, both were very sick, so he stayed in bed most of the time in those 2 weeks due to the sickness. One morning when he woke up, he had severe pain in the right lower extremity, and he had severe swelling. He stated he woke up with a scream, and he had called his primary physician, Dr. Santana. He had a Doppler ultrasound of the leg at [facility] which showed DVT of the right lower extremity. The patient was admitted to the hospital. He was treated with heparin and then was discharged on Coumadin. This was monitored by his primary physician, Dr. Marrese. He took Coumadin for 6 months, and then it was stopped. At this time, he was in the hospital for 2 days for back surgery, and then he was discharged to [facility] where he was getting physical therapy, and he was very active for several weeks. When he was discharged to home, he noticed that he was not moving around as much as like when he was at [facility]. He was kind of mostly bedridden. He had a Doppler ultrasound of both lower legs last week Friday, and now he has pulmonary embolism on the right side. There is no right-sided heart strain noted. The patient is on heparin, and his symptoms are improving. If he remains stable tomorrow, then this could be switched over to Eliquis 10 mg twice a day for 7 days and then 5 mg twice a day. I do not recommend to check any hypercoagulable panel at this time as the management is not going to be changed. Also, the hypercoagulable panel results take 2 weeks at least. Also, the hypercoagulable panel is not reliable in the acute setting. Therefore, the hypercoagulable panel should be done in a nonacute setting in 6-12 weeks. The patient has agreed with the plan. If the patient is discharged to home, then he should be given an appointment with me for followup, and I will order the hypercoagulable panel in 6-12 weeks. At this time, the patient will start Eliquis, and if he remains stable, then he could be discharged to home, and I will follow him as an outpatient. Thank you for asking my opinion. MD BETH Dickens/dana/marie , 11:59 PM , 12:17 AM [facility]
[2018-04-15] MEDS: Gabapentin 300 MG Capsule PO SCH ×2 (05:53→14:26)
[2018-04-15] MEDS: Baclofen 10 MG Tablet PO SCH ×2 (05:53→14:26)
[2018-04-15 08:01] LABS: Baso % (Auto) 0.6 % (0.0-2.0); Eos # (Auto) 0.2 th/mm3 (0.0-0.4); Eos % (Auto) 4.5 % (0.0-4.0); Hematocrit 32.1 % (39.0-51.0); Hemoglobin 11.2 gm/dL (13.0-17.0); Lymph % (Auto) 29.9 % (9.0-44.0); Mean Corpuscular HGB Conc 34.9 % (32.0-36.0); Mean Corpuscular Hemoglobin 31.8 pg (27.0-34.0); Mean Corpuscular Volume 91.2 fL (80.0-100.0); Mean Platelet Volume 7.5 fL (7.0-11.0); Mono # (Auto) 0.4 th/mm3 (0.0-0.9); Neut # (Auto) 1.8 th/mm3 (1.8-7.7); Platelet Count 210 th/mm3 (150-450); Red Blood Count 3.52 mil/mm3 (4.50-5.90); Red Cell Distribution Width 14.4 % (11.6-17.2); White Blood Count 3.4 th/mm3 (4.0-11.0)
[2018-04-15 08:28] LABS: Albumin 2.9 g/dL (3.4-5.0); Anion Gap 8 meq/L (5-15); Aspartate Aminotransferase 61 U/L (15-37); Blood Urea Nitrogen 18 mg/dL (7-18); Calcium 8.7 mg/dL (8.5-10.1); Carbon Dioxide 26.8 meq/L (21.0-32.0); Chloride 106 meq/L (98-107); Glomerular Filtration Rate 68 mL/min (>89); Glucose,Random 105 mg/dL (74-106); Potassium 3.7 meq/L (3.5-5.1); Sodium 141 meq/L (136-145)
[2018-04-15 08:29] LABS: Alanine Aminotransferase 127 U/L (12-78)
[2018-04-15 08:31] LABS: Alkaline Phosphatase 91 U/L (45-117); Total Protein 6.2 g/dL (6.4-8.2)
[2018-04-15] MEDS: Amitriptyline 25 MG Tablet PO SCH (11:37)
--- NOTE | 2018-04-15 11:46 | P.PNIM ---
Subjective Interval history: 77-year-old male with a past medical history significant for hypertension, hyperlipidemia and previous right-sided DVT presents the emergency department for the evaluation of bilateral lower extremity pain. The patient had back surgery on 02/24 and was recently discharged from rehab. Since Friday, the patient has been having severe pains to his legs, right greater than left. He was sent to [place] for an ultrasound of the legs. He was told that he had multiple bilateral DVTs and sent to the emergency department for further evaluation. He denies any chest pain or shortness of breath. No abdominal pain. No nausea/vomiting/diarrhea. No fever/chills. No lateralizing signs/ symptoms. 04-14 AWAIT HEMATOLOGY CONSULT HYPERCOAGULATION WORK UP CONTINUE HEPARIN DRIP HAS HISTORY OF DVT IN 2010 WILL DEFER TO ONCOLOGY FOR THIS 04-15 SWITCH TO ELIQUIS 10MG PO BID FOR 7 DAYS THEN 5MG PO BID FROM THEN ON WANTS TO GO HOME DC TO HOME LESS PAIN NO BLEEDING CLEARED BY ONCOLOGY FOLLOW UP PCP AND ONCOLOGY Physical Exam Vital signs: Vital Signs 04/14/18 12:00 04/14/18 16:00 04/14/18 20:00 Temperature 98.4 F 98.0 F 98.2 F Pulse Rate 69 69 73 Respiratory Rate 16 18 20 Blood Pressure 120/70 109/62 115/61 Pulse Oximetry 94 L 97 95 04/15/18 00:00 04/15/18 04:00 04/15/18 08:00 Temperature 97.5 F L 98.0 F 98.7 F Pulse Rate 63 75 80 Respiratory Rate 16 18 18 Blood Pressure 110/61 126/60 122/60 Pulse Oximetry 95 99 96 Intake & Output 04/14/18 04/15/18 04/15/18 18:59 06:59 18:59 Intake Total 540 / 540 250 / 250 Output Total 900 / 900 Balance 540 / 540 -650 / -650 Intake: IV 250 / 250 Heparin/D5W 25,000 U/250 mL 25, 250 / 250 000 unit In 250 ml @ Per Protocol IV.CONT TITRATE PRN Rx #:[id number] Oral 540 / 540 Output: Urine 900 / 900 Narrative: Gen.: No acute distress Head: Normocephalic. Atraumatic. EENT: Pupils equal round and reactive to light. Nose without drainage. Airway intact. Throat without injection. Cardiovascular: Regular rate and rhythm. No murmurs, rubs or gallops. Respiratory: Lungs clear to auscultation bilaterally. No wheezes or rhonchi. Abdomen: Soft, nontender, nondistended. No peritoneal signs. Musculoskeletal: No gross deformities. No edema. Bilateral lower extremity calf tenderness. Skin: No obvious rashes or erythema. Neuro: Sensory and motor grossly intact. Cranial nerves II through XII grossly intact. Results - Labs CBC & Chem 7: 04/15/18 07:16 04/15/18 07:16 Laboratory Results - last 24 hr 04/14/18 04/14/18 04/14/18 12:24 12:24 12:24 WBC RBC Hgb Hct MCV MCH MCHC RDW Plt Count MPV Neut % (Auto) Lymph % (Auto) [place] % (Auto) Eos % (Auto) Baso % (Auto) Neut # (Auto) Lymph # (Auto) [place] # (Auto) Eos # (Auto) Baso # (Auto) WBC Differential Differential Comment PT 10.0 INR 1.0 APTT 56.9 H Fibrinogen 383 H D-Dimer Quant (PE/DVT) 6.63 H Factor VIII Activity Cancelled Sodium Potassium Chloride Carbon Dioxide Anion Gap BUN Creatinine Estimated GFR Random Glucose Hemoglobin A1c Calcium Phosphorus Magnesium Total Bilirubin AST ALT Alkaline Phosphatase Total Protein Albumin TSH Free T4 04/14/18 04/14/18 04/14/18 12:24 12:24 12:24 WBC RBC Hgb Hct MCV MCH MCHC RDW Plt Count MPV Neut % (Auto) Lymph % (Auto) [place] % (Auto) Eos % (Auto) Baso % (Auto) Neut # (Auto) Lymph # (Auto) [place] # (Auto) Eos # (Auto) Baso # (Auto) WBC Differential Differential Comment PT INR APTT Fibrinogen D-Dimer Quant (PE/DVT) Factor VIII Activity Cancelled Sodium Potassium Chloride Carbon Dioxide Anion Gap BUN Creatinine Estimated GFR Random Glucose Hemoglobin A1c 5.5 Calcium Phosphorus Magnesium Total Bilirubin AST ALT Alkaline Phosphatase Total Protein Albumin TSH 2.230 Free T4 04/14/18 04/15/18 04/15/18 13:58 07:16 07:16 WBC 3.4 L RBC 3.52 L Hgb 11.2 L Hct 32.1 L MCV 91.2 MCH 31.8 MCHC 34.9 RDW 14.4 Plt Count 210 MPV 7.5 Neut % (Auto) 53.0 Lymph % (Auto) 29.9 [place] % (Auto) 12.0 H Eos % (Auto) 4.5 H Baso % (Auto) 0.6 Neut # (Auto) 1.8 Lymph # (Auto) 1.0 [place] # (Auto) 0.4 Eos # (Auto) 0.2 Baso # (Auto) 0.0 WBC Differential . Differential Comment Auto diff final PT INR APTT Fibrinogen D-Dimer Quant (PE/DVT) Factor VIII Activity Sodium 141 Potassium 3.7 Chloride 106 Carbon Dioxide 26.8 Anion Gap 8 BUN 18 Creatinine 1.06 Estimated GFR 68 L Random Glucose 105 Hemoglobin A1c Calcium 8.7 Phosphorus 4.0 Magnesium 2.0 Total Bilirubin 0.4 AST 61 H ALT 127 H Alkaline Phosphatase 91 Total Protein 6.2 L Albumin 2.9 L TSH Free T4 0.88 04/15/18 07:16 WBC RBC Hgb Hct MCV MCH MCHC RDW Plt Count MPV Neut % (Auto) Lymph % (Auto) [place] % (Auto) Eos % (Auto) Baso % (Auto) Neut # (Auto) Lymph # (Auto) [place] # (Auto) Eos # (Auto) Baso # (Auto) WBC Differential Differential Comment PT INR APTT 73.5 H D Fibrinogen D-Dimer Quant (PE/DVT) Factor VIII Activity Sodium Potassium Chloride Carbon Dioxide Anion Gap BUN Creatinine Estimated GFR Random Glucose Hemoglobin A1c Calcium Phosphorus Magnesium Total Bilirubin AST ALT Alkaline Phosphatase Total Protein Albumin TSH Free T4 - Imaging Chest CTA 04/13/18 16:26 CONCLUSION: 1. Small amount of pulmonary emboli in the right lower lobe pulmonary arteries. - Procedures NONE Assessment and Plan - Plan 1. Bilateral DVTs Ultrasound done at [place] imaging showed bilateral DVTs CTA showed a small amount of pulmonary emboli in the right lower lobe pulmonary arteries Heparin drip Echo Hematology consulted, appreciate recommendations SWITCH TO ELIQUIS 10MG PO BID FOR 7 DAYS THEN 5MG PO BID 2. Chronic medical conditions: Hypertension, GERD, BPH Continue home medications 3. Recent back surgery Continue baclofengabapentin DC TO HOME TODAY FOLLOW UP WITH SORATHIA AND PCP Code Status: FULL CODE Discussed Condition With: RN AND PT AND AND CM Discharge Planning: DC TO HOME CLEARED BY ALL
--- NOTE | 2018-04-15 11:55 | P.DS ---
Date of admission: 04/13/18 18:26 Primary care physician: Mildred Santana MD Attending physician on discharge: Nate Lagos Anticipated date of discharge: 04/15/18 Brief History from admission: 77-year-old male with a past medical history significant for hypertension, hyperlipidemia and previous right-sided DVT presents the emergency department for the evaluation of bilateral lower extremity pain. The patient had back surgery on 02/24 and was recently discharged from rehab. Since Friday, the patient has been having severe pains to his legs, right greater than left. He was sent to [place] for an ultrasound of the legs. He was told that he had multiple bilateral DVTs and sent to the emergency department for further evaluation. He denies any chest pain or shortness of breath. No abdominal pain. No nausea/vomiting/diarrhea. No fever/chills. No lateralizing signs/ symptoms. DS: Diagnosis - Discharge Diagnosis (1) DVT (deep venous thrombosis) Status: Acute (2) Pulmonary emboli Status: Acute (3) Degenerative disc disease, lumbar Status: Chronic (4) Impaired mobility and activities of daily living Status: Chronic (5) Lumbosacral radiculopathy at L5 Status: Chronic (6) Status post laminectomy with spinal fusion Status: Chronic (7) Dyslipidemia Status: Chronic (8) Foot drop, left Status: Chronic (9) GERD (gastroesophageal reflux disease) Status: Chronic (10) Hypertension Status: Chronic DS: Medications - Discharge Medications Prescriptions: apixaban [Eliquis] 10 mg PO BID #68 tab DS: Summary Hospital Course: 77-year-old male with a past medical history significant for hypertension, hyperlipidemia and previous right-sided DVT presents the emergency department for the evaluation of bilateral lower extremity pain. The patient had back surgery on 02/24 and was recently discharged from rehab. Since Friday, the patient has been having severe pains to his legs, right greater than left. He was sent [place] ultrasound of the legs. He was told that he had multiple bilateral DVTs and sent to the emergency department for further evaluation. He denies any chest pain or shortness of breath. No abdominal pain. No nausea/vomiting/diarrhea. No fever/chills. No lateralizing signs/ symptoms. 8-14 AWAIT HEMATOLOGY CONSULT HYPERCOAGULATION WORK UP CONTINUE HEPARIN DRIP HAS HISTORY OF DVT IN 2010 WILL DEFER TO ONCOLOGY FOR THIS 04-15 SWITCH TO ELIQUIS 10MG PO BID FOR 7 DAYS THEN 5MG PO BID FROM THEN ON WANTS TO GO HOME DC TO HOME LESS PAIN NO BLEEDING CLEARED BY ONCOLOGY FOLLOW UP PCP AND ONCOLOGY - Time Spent with Patient Total time spent providing and/or coordinating discharge services: Greater than 30 minutes - Quality: VTE Deep Vein Thrombosis/Pulmonary Embolism Present on Admission: Yes Exam Vital signs: Vital Signs 04/14/18 12:00 04/14/18 16:00 04/14/18 20:00 Temperature 98.4 F 98.0 F 98.2 F Pulse Rate 69 69 73 Respiratory Rate 16 18 20 Blood Pressure 120/70 109/62 115/61 Pulse Oximetry 94 L 97 95 04/15/18 00:00 04/15/18 04:00 04/15/18 08:00 Temperature 97.5 F L 98.0 F 98.7 F Pulse Rate 63 75 80 Respiratory Rate 16 18 18 Blood Pressure 110/61 126/60 122/60 Pulse Oximetry 95 99 96 Intake & Output 04/14/18 04/15/18 04/15/18 18:59 06:59 18:59 Intake Total 540 / 540 250 / 250 Output Total 900 / 900 Balance 540 / 540 -650 / -650 Intake: IV 250 / 250 Heparin/D5W 25,000 U/250 mL 25, 250 / 250 000 unit In 250 ml @ Per Protocol IV.CONT TITRATE PRN Rx #:[id number] Oral 540 / 540 Output: Urine 900 / 900 Narrative: Gen.: No acute distress Head: Normocephalic. Atraumatic. EENT: Pupils equal round and reactive to light. Nose without drainage. Airway intact. Throat without injection. Cardiovascular: Regular rate and rhythm. No murmurs, rubs or gallops. Respiratory: Lungs clear to auscultation bilaterally. No wheezes or rhonchi. Abdomen: Soft, nontender, nondistended. No peritoneal signs. Musculoskeletal: No gross deformities. No edema. Bilateral lower extremity calf tenderness. Skin: No obvious rashes or erythema. Neuro: Sensory and motor grossly intact. Cranial nerves II through XII grossly intact. Results Procedures completed during hospitalization: NONE Completed studies during hospitalization: Laboratory Results WBC 3.4 th/mm3 (4.0-11.0) L 04/15/18 07:16 RBC 3.52 mil/mm3 (4.50-5.90) L 04/15/18 07:16 Hgb 11.2 gm/dL (13.0-17.0) L 04/15/18 07:16 Hct 32.1 % (39.0-51.0) L 04/15/18 07:16 MCV 91.2 fL (80.0-100.0) 04/15/18 07:16 MCH 31.8 pg (27.0-34.0) 04/15/18 07:16 MCHC 34.9 % (32.0-36.0) 04/15/18 07:16 RDW 14.4 % (11.6-17.2) 04/15/18 07:16 Plt Count 210 th/mm3 (150-450) 04/15/18 07:16 MPV 7.5 fL (7.0-11.0) 04/15/18 07:16 Neut % (Auto) 53.0 % (16.0-70.0) 04/15/18 07:16 Lymph % (Auto) 29.9 % (9.0-44.0) 04/15/18 07:16 [place] % (Auto) 12.0 % (0.0-8.0) H 04/15/18 07:16 Eos % (Auto) 4.5 % (0.0-4.0) H 04/15/18 07:16 Baso % (Auto) 0.6 % (0.0-2.0) 04/15/18 07:16 Neut # (Auto) 1.8 th/mm3 (1.8-7.7) 04/15/18 07:16 Lymph # (Auto) 1.0 th/mm3 (1.0-4.8) 04/15/18 07:16 [place] # (Auto) 0.4 th/mm3 (0.0-0.9) 04/15/18 07:16 Eos # (Auto) 0.2 th/mm3 (0.0-0.4) 04/15/18 07:16 Baso # (Auto) 0.0 th/mm3 (0.0-0.2) 04/15/18 07:16 WBC Differential . 04/15/18 07:16 Differential Comment Auto diff final 04/15/18 07:16 PT 10.0 sec (9.8-11.6) 04/14/18 12:24 INR 1.0 Ratio 04/14/18 12:24 APTT 73.5 sec (24.3-30.1) H D 04/15/18 07:16 Fibrinogen 383 mg/dL (227-377) H 04/14/18 12:24 D-Dimer Quant (PE/DVT) 6.63 mg/L FEU (0.00-0.50) H 04/14/18 12:24 Factor VIII Activity Cancelled 04/14/18 12:24 Sodium 141 meq/L (136-145) 04/15/18 07:16 Potassium 3.7 meq/L (3.5-5.1) 04/15/18 07:16 Chloride 106 meq/L (98-107) 04/15/18 07:16 Carbon Dioxide 26.8 meq/L (21.0-32.0) 04/15/18 07:16 Anion Gap 8 meq/L (5-15) 04/15/18 07:16 BUN 18 mg/dL (7-18) 04/15/18 07:16 Creatinine 1.06 mg/dL (0.60-1.30) 04/15/18 07:16 Estimated GFR 68 mL/min (>89) L 04/15/18 07:16 Random Glucose 105 mg/dL (74-106) 04/15/18 07:16 Hemoglobin A1c 5.5 % (4.3-6.0) 04/14/18 12:24 Calcium 8.7 mg/dL (8.5-10.1) 04/15/18 07:16 Phosphorus 4.0 mg/dL (2.5-4.9) 04/15/18 07:16 Magnesium 2.0 mg/dL (1.5-2.5) 04/15/18 07:16 Total Bilirubin 0.4 mg/dL (0.2-1.0) 04/15/18 07:16 AST 61 U/L (15-37) H 04/15/18 07:16 ALT 127 U/L (12-78) H 04/15/18 07:16 Alkaline Phosphatase 91 U/L (45-117) 04/15/18 07:16 Total Protein 6.2 g/dL (6.4-8.2) L 04/15/18 07:16 Albumin 2.9 g/dL (3.4-5.0) L 04/15/18 07:16 TSH 2.230 uIU/mL (0.358-3.740) 04/14/18 12:24 Free T4 0.88 ng/dL (0.76-1.46) 04/14/18 13:58 Impressions Chest CTA 04/13/18 16:26 CONCLUSION: 1. Small amount of pulmonary emboli in the right lower lobe pulmonary arteries. Labs on day of discharge: Labs from last 24 hours 04/15/18 04/15/18 04/15/18 07:16 07:16 07:16 WBC 3.4 L RBC 3.52 L Hgb 11.2 L Hct 32.1 L MCV 91.2 MCH 31.8 MCHC 34.9 RDW 14.4 Plt Count 210 MPV 7.5 Neut % (Auto) 53.0 Lymph % (Auto) 29.9 [place] % (Auto) 12.0 H Eos % (Auto) 4.5 H Baso % (Auto) 0.6 Neut # (Auto) 1.8 Lymph # (Auto) 1.0 [place] # (Auto) 0.4 Eos # (Auto) 0.2 Baso # (Auto) 0.0 WBC Differential . Differential Comment Auto diff final PT INR APTT 73.5 H D Thrombin Time Fibrinogen D-Dimer Quant (PE/DVT) Lupus Anticoagulant LA PTT Screen dRVVT Screen Protein C Antigen APC Resistance Protein S Activity Antithrombin III Activ Factor V Leiden Mutat Factor V Leiden Interp Factor VIII Activity von Willebrand Factor von Willebrand Antigen vWF Multimeric Antigen vWF Ristocetin Cofactr von Willebrand Interp Von Willebrand Act PTT Factor IX Activity Sodium 141 Potassium 3.7 Chloride 106 Carbon Dioxide 26.8 Anion Gap 8 BUN 18 Creatinine 1.06 Estimated GFR 68 L Random Glucose 105 Hemoglobin A1c Calcium 8.7 Phosphorus 4.0 Magnesium 2.0 Total Bilirubin 0.4 AST 61 H ALT 127 H Alkaline Phosphatase 91 Total Protein 6.2 L Albumin 2.9 L Homocysteine Cardiovas TSH Free T4 Beta-2-GPI IgG Ab Beta-2-GPI IgA Ab Beta-2-GPI IgM Ab Phosphatidylserine IgG Phosphatidylserine IgA Phosphatidylserine IgM Anti-Cardiolipin IgG Ab Anti-Cardiolipin IgM Ab MTHFR Mutation Detect Prothrombin [id number] Mut 08/14/18 08/14/18 08/14/18 13:58 12:24 12:24 WBC RBC Hgb Hct MCV MCH MCHC RDW Plt Count MPV Neut % (Auto) Lymph % (Auto) [place] % (Auto) Eos % (Auto) Baso % (Auto) Neut # (Auto) Lymph # (Auto) [place] # (Auto) Eos # (Auto) Baso # (Auto) WBC Differential Differential Comment PT INR APTT Thrombin Time Fibrinogen D-Dimer Quant (PE/DVT) Lupus Anticoagulant LA PTT Screen dRVVT Screen Protein C Antigen APC Resistance Protein S Activity Antithrombin III Activ Factor V Leiden Mutat Factor V Leiden Interp Factor VIII Activity von Willebrand Factor von Willebrand Antigen vWF Multimeric Antigen vWF Ristocetin Cofactr von Willebrand Interp Von Willebrand Act PTT Factor IX Activity Sodium Potassium Chloride Carbon Dioxide Anion Gap BUN Creatinine Estimated GFR Random Glucose Hemoglobin A1c 5.5 Calcium Phosphorus Magnesium Total Bilirubin AST ALT Alkaline Phosphatase Total Protein Albumin Homocysteine Cardiovas TSH 2.230 Free T4 0.88 Beta-2-GPI IgG Ab Beta-2-GPI IgA Ab Beta-2-GPI IgM Ab Phosphatidylserine IgG Phosphatidylserine IgA Phosphatidylserine IgM Anti-Cardiolipin IgG Ab Anti-Cardiolipin IgM Ab MTHFR Mutation Detect Prothrombin [id number] Mut 04/14/18 04/14/18 04/14/18 12:24 12:24 12:24 WBC RBC Hgb Hct MCV MCH MCHC RDW Plt Count MPV Neut % (Auto) Lymph % (Auto) [place] % (Auto) Eos % (Auto) Baso % (Auto) Neut # (Auto) Lymph # (Auto) [place] # (Auto) Eos # (Auto) Baso # (Auto) WBC Differential Differential Comment PT INR APTT Thrombin Time Pending Fibrinogen D-Dimer Quant (PE/DVT) Lupus Anticoagulant Pending LA PTT Screen Pending dRVVT Screen Pending Protein C Antigen Pending APC Resistance Pending Protein S Activity Pending Antithrombin III Activ Pending Factor V Leiden Mutat Pending Factor V Leiden Interp Pending Factor VIII Activity Cancelled Cancelled von Willebrand Factor Pending von Willebrand Antigen Pending vWF Multimeric Antigen Pending vWF Ristocetin Cofactr Pending von Willebrand Interp Pending Von Willebrand Act PTT Pending Factor IX Activity Pending Sodium Potassium Chloride Carbon Dioxide Anion Gap BUN Creatinine Estimated GFR Random Glucose Hemoglobin A1c Calcium Phosphorus Magnesium Total Bilirubin AST ALT Alkaline Phosphatase Total Protein Albumin Homocysteine Cardiovas Pending TSH Free T4 Beta-2-GPI IgG Ab Pending Beta-2-GPI IgA Ab Pending Beta-2-GPI IgM Ab Pending Phosphatidylserine IgG Pending Phosphatidylserine IgA Pending Phosphatidylserine IgM Pending Anti-Cardiolipin IgG Ab Pending Anti-Cardiolipin IgM Ab Pending MTHFR Mutation Detect Pending Prothrombin [id number] Mut Pending 04/14/18 04/14/18 12:24 12:24 WBC RBC Hgb Hct MCV MCH MCHC RDW Plt Count MPV Neut % (Auto) Lymph % (Auto) [place] % (Auto) Eos % (Auto) Baso % (Auto) Neut # (Auto) Lymph # (Auto) [place] # (Auto) Eos # (Auto) Baso # (Auto) WBC Differential Differential Comment PT 10.0 INR 1.0 APTT 56.9 H Thrombin Time Fibrinogen 383 H D-Dimer Quant (PE/DVT) 6.63 H Lupus Anticoagulant LA PTT Screen dRVVT Screen Protein C Antigen APC Resistance Protein S Activity Antithrombin III Activ Factor V Leiden Mutat Factor V Leiden Interp Factor VIII Activity von Willebrand Factor von Willebrand Antigen vWF Multimeric Antigen vWF Ristocetin Cofactr von Willebrand Interp Von Willebrand Act PTT Factor IX Activity Sodium Potassium Chloride Carbon Dioxide Anion Gap BUN Creatinine Estimated GFR Random Glucose Hemoglobin A1c Calcium Phosphorus Magnesium Total Bilirubin AST ALT Alkaline Phosphatase Total Protein Albumin Homocysteine Cardiovas TSH Free T4 Beta-2-GPI IgG Ab Beta-2-GPI IgA Ab Beta-2-GPI IgM Ab Phosphatidylserine IgG Phosphatidylserine IgA Phosphatidylserine IgM Anti-Cardiolipin IgG Ab Anti-Cardiolipin IgM Ab MTHFR Mutation Detect Prothrombin [id number] Mut - Impressions ITS Impressions Chest CTA 04/13/18 16:26 CONCLUSION: 1. Small amount of pulmonary emboli in the right lower lobe pulmonary arteries. Discharge Plan - Discharge Disposition Patient Disposition: 01 Discharge Home - Discharge Condition Condition: Stable - Discharge Order Discharge Orders: Discharge Order (Routine); Ordered 04/15/18 Ordered By: Nate Lagos - Discharge Details Anticipated Discharge Date: 04/15/18 Discharge Comment: DC TO HOME - Physicians Team Primary Care Provider: Mildred Santana Attending Provider: Nate Lagos Other Providers: Lukas Macias MD
--- NOTE | 2018-04-15 15:14 | P.PNONC ---
Subjective Interval history: Afebrile Patient reports he is feeling and breathing okay Reports leg swelling is improved Denies bleeding Objective Vital Signs/Intake & Output: Vital Signs 04/14/18 16:00 04/14/18 20:00 04/15/18 00:00 Temperature 98.0 F 98.2 F 97.5 F L Pulse Rate 69 73 63 Respiratory Rate 18 20 16 Blood Pressure 109/62 115/61 110/61 Pulse Oximetry 97 95 95 04/15/18 04:00 04/15/18 08:00 04/15/18 12:00 Temperature 98.0 F 98.7 F 98.7 F Pulse Rate 75 80 71 Respiratory Rate 18 18 16 Blood Pressure 126/60 122/60 163/77 H Pulse Oximetry 99 96 96 Intake & Output 04/14/18 04/15/18 04/15/18 18:59 06:59 18:59 Intake Total 540 / 540 250 / 250 Output Total 900 / 900 Balance 540 / 540 -650 / -650 Intake: IV 250 / 250 Heparin/D5W 25,000 U/250 mL 25, 250 / 250 000 unit In 250 ml @ Per Protocol IV.CONT TITRATE PRN Rx #:[id number] Oral 540 / 540 Output: Urine 900 / 900 Result Diagrams: 04/15/18 07:16 04/15/18 07:16 Laboratory Results: Laboratory Results - last 24 hr 04/14/18 04/15/18 04/15/18 12:24 07:16 07:16 WBC 3.4 L RBC 3.52 L Hgb 11.2 L Hct 32.1 L MCV 91.2 MCH 31.8 MCHC 34.9 RDW 14.4 Plt Count 210 MPV 7.5 Neut % (Auto) 53.0 Lymph % (Auto) 29.9 [place] % (Auto) 12.0 H Eos % (Auto) 4.5 H Baso % (Auto) 0.6 Neut # (Auto) 1.8 Lymph # (Auto) 1.0 [place] # (Auto) 0.4 Eos # (Auto) 0.2 Baso # (Auto) 0.0 WBC Differential . Differential Comment Auto diff final APTT Sodium 141 Potassium 3.7 Chloride 106 Carbon Dioxide 26.8 Anion Gap 8 BUN 18 Creatinine 1.06 Estimated GFR 68 L Random Glucose 105 Hemoglobin A1c 5.5 Calcium 8.7 Phosphorus 4.0 Magnesium 2.0 Total Bilirubin 0.4 AST 61 H ALT 127 H Alkaline Phosphatase 91 Total Protein 6.2 L Albumin 2.9 L 04/15/18 07:16 WBC RBC Hgb Hct MCV MCH MCHC RDW Plt Count MPV Neut % (Auto) Lymph % (Auto) [place] % (Auto) Eos % (Auto) Baso % (Auto) Neut # (Auto) Lymph # (Auto) [place] # (Auto) Eos # (Auto) Baso # (Auto) WBC Differential Differential Comment APTT 73.5 H D Sodium Potassium Chloride Carbon Dioxide Anion Gap BUN Creatinine Estimated GFR Random Glucose Hemoglobin A1c Calcium Phosphorus Magnesium Total Bilirubin AST ALT Alkaline Phosphatase Total Protein Albumin Medications: Active Medications Generic Name Dose Route Start Last Admin Trade Name Freq PRN Reason Stop Dose Admin Amitriptyline HCl 25 mg 04/14/18 09:00 04/15/18 11:37 Elavil PO 25 mg DAILY TOM Administration Apixaban 10 mg 04/15/18 09:15 04/15/18 11:38 Eliquis PO 10 mg BID TOM Administration Aspirin 325 mg 04/14/18 09:00 04/15/18 11:36 Ecotrin PO 325 mg DAILY TOM Administration Baclofen 10 mg 04/13/18 22:00 04/15/18 14:26 Lioresal PO 10 mg Q8HR TOM Administration Gabapentin 900 mg 04/13/18 22:00 04/15/18 14:26 Neurontin PO 900 mg Q8H TOM Administration Losartan Potassium 75 mg 04/14/18 09:00 04/15/18 11:50 Cozaar PO 75 mg DAILY TOM Administration Oxycodone/Acetaminophen 1 tab 04/13/18 23:58 04/15/18 04:31 Percocet 5/325 Mg PO 1 tab Q6H PRN Administration Pain Scale 4-10 Pantoprazole Sodium 40 mg 04/14/18 09:00 04/15/18 11:51 Protonix PO 40 mg DAILY TOM Administration Sodium Chloride 2 ml 04/13/18 15:30 04/13/18 16:01 Ns Flush IV.FLUSH 2 ml UNSCH PRN Administration FLUSH AFTER USING IV ACCESS Sodium Chloride 2 ml 04/13/18 21:00 04/15/18 14:25 Ns Flush IV.FLUSH 2 ml BID TOM Administration Terazosin HCl 5 mg 04/14/18 21:00 04/14/18 21:36 Hytrin PO 5 mg HS TOM Administration Objective Remarks: GENERAL: Older male resting in bed in no obvious distress SKIN: Warm and dry. HEAD: Normocephalic. EYES: No scleral icterus. No injection or drainage. NECK: Supple, trachea midline. No JVD or lymphadenopathy. CARDIOVASCULAR: Regular rate and rhythm without murmurs. RESPIRATORY: Clear but diminished posteriorly. Breathing unlabored at rest. GASTROINTESTINAL: Abdomen soft, non-tender, nondistended. EXTREMITIES: No cyanosis. 1+ edema to bilateral lower extremities MUSCULOSKELETAL: Adequate muscle tone. NEUROLOGICAL: No obvious focal deficit. Awake, alert, and oriented x3. Assessment/Plan - Plan 77-year-old male with history of DVT in the past after a period of immobility. The patient was found to have a low burden pulmonary embolism in the right lower lobe. Hematology consulted for recommendations. 1. Patient has been changed over from heparin drip to 10 mg Eliquis twice daily. He is tolerating this so far very well. He is not having any bleeding. He will continue the Eliquis 10 mg twice daily for 7 days and then decrease this dose to 5 mg twice daily. 2. I discussed with the patient he will follow-up with Dr. Macias in the clinic in approximately 6-8 weeks to discuss hypercoagulable workup. - Attending Statement The exam, history, and the medical decision-making described in the above note were completed with the assistance of the mid-level provider. I reviewed and agree with the findings presented. I attest that I had a [id number] encounter with the patient on the same day, and personally performed and documented my assessment and findings in the medical record. Leg swelling is better. at bedside. Transition heparin to eliquis. FU in 6-8 weeks for hypercoag W/U
[2018-04-15 17:25] VITALS: BP 135/76; PULSE 73; RESP 18; TEMP 98.8; O2SAT 97
--- NOTE | 2018-04-15 18:00 | ECHRPT ---
Indication: HEART FAILURE CONCLUSIONS The left ventricular systolic function is normal with an estimated ejection fraction in the range of 60-65%. Normal left ventricular size. Wall thickness is measured at the upper limits of normal. No regional wall motion abnormalities are present. Calcification of the non-coronary cusp. Mild aortic valve regurgitation. There is trace tricuspid valve regurgitation. The estimated pulmonary arterial pressure is 31 mmHg. BP: / HR: Rhythm: Sinus MEASUREMENTS (Male / Female) Normal Values Technical Quality:Fair 2D ECHO LV Diastolic Diameter PLAX 4.5 cm 4.2 - 5.9 / 3.9 - 5.3 cm LV Systolic Diameter PLAX 3.2 cm IVS Diastolic Thickness 1.2 cm 0.6 - 1.0 / 0.6 - 0.9 cm LVPW Diastolic Thickness 1.2 cm 0.6 - 1.0 / 0.6 - 0.9 cm LV Relative Wall Thickness 0.5 RV Internal Dim ED PLAX 2.9 cm LVOT Diameter 1.9 cm LA Systolic Diameter LX 3.0 cm 3.0 - 4.0 / 2.7 - 3.8 cm LV Ejection Fraction MOD 4C 65.5 % LV Ejection Fraction 4C AL 66.8 % M-MODE Aortic Root Diameter MM 2.4 cm LA Systolic Diameter MM 3.3 cm LA Ao Ratio MM 1.4 AV Cusp Separation MM 2.0 cm DOPPLER AV Peak Velocity 136.0 cm/s AV Peak Gradient 7.4 mmHg AI Peak Velocity 287.0 cm/s AI Peak Gradient 32.9 mmHg AI Pressure Half Time 588.5 ms LVOT Peak Velocity 129.0 cm/s LVOT Peak Gradient 6.7 mmHg AV Area Cont Eq pk 2.7 cm MV Area PHT 2.2 cm Mitral E Point Velocity 66.6 cm/s Mitral A Point Velocity 98.7 cm/s Mitral E to A Ratio 0.7 LV E' Lateral Velocity 5.9 cm/s Mitral E to LV E' Lateral Ratio 11.2 LV E' Septal Velocity 6.5 cm/s Mitral E to LV E' Septal Ratio 10.2 TR Peak Velocity 228.0 cm/s TR Peak Gradient 20.8 mmHg Right Atrial Pressure 10.0 mmHg Pulmonary Artery Systolic Pressu 30.8 mmHg Right Ventricular Systolic Press 30.8 mmHg PV Peak Velocity 73.3 cm/s PV Peak Gradient 2.1 mmHg FINDINGS LEFT VENTRICLE The left ventricular systolic function is normal with an estimated ejection fraction in the range of 60-65%. Normal left ventricular size. Wall thickness is measured at the upper limits of normal. No regional wall motion abnormalities are present. RIGHT VENTRICLE Normal right ventricular size and systolic function. LEFT ATRIUM The left atrial size is normal. RIGHT ATRIUM The right atrial size is normal. ATRIAL SEPTUM Normal atrial septal thickness without atrial level shunting by limited color doppler interrogation. AORTA The aortic root and proximal ascending aorta are normal in size on limited imaging. MITRAL VALVE Structurally normal mitral valve. No mitral valve stenosis or regurgitation. AORTIC VALVE Trileaflet aortic valve. Calcification of the non-coronary cusp. Mild aortic valve regurgitation. TRICUSPID VALVE Structurally normal tricuspid valve. There is trace tricuspid valve regurgitation. The estimated pulmonary arterial pressure is 30.8 mmHg. PULMONARY VALVE No pulmonary valve regurgitation or stenosis. VESSELS The inferior vena cava is normal in size. PERICARDIUM No pericardial effusion. Talita Martin MD, FACC (Electronically Signed) Final Date:15 April 2018 17:59
[2018-04-16 03:51] LABS: Homocysteine (Cardiovascular) 9.5 umol/L (<11.4)
[2018-04-17 07:51] LABS: Dil Russell Viper Venom Conf ( ND (NEGATIVE); Dil Russell Viper Venom Time M ND (CORRECTED); Lupus Anticoagulant PTT Screen 90 seconds (< OR = 40)
[2018-04-18 03:49] LABS: Activated Protein C Resistance 4.4 ratio (> OR = 2.1)
[2018-04-21 16:52] LABS: Factor V Leiden Mutation Negative (Negative); Protein C Antigen 74 % (70-150)
== END 2018-04-15 18:06 | disposition home or self-care (01) ==
LOC: NEPC 14:52 → NEDA 18:26 → NEPHCDU 22:41
PROVIDERS: ADMIT Hospitalist; ATTEND Hospitalist